=== PATIENT | female | born 1945 | race Caucasian/White ===

== ENCOUNTER 2017-03-01 11:45 | Inpatient (IN) | payer MEDICARE ==
[~2017-03-01] VITALS: Ht 160 cm; Wt 76.2 kg
[~2017-03-01 11:45] MED LIST: CITA40TA17 PO; EST1T PO; LOSA25TA96 PO; METO50TA16 PO
[2017-03-21] MEDS ORDERED: BUPR100T5 PO (14:29)
[2017-03-21] MEDS ORDERED: PRO AIR INHALER (14:29)
[2017-03-21] MEDS ORDERED: TRAM50TA2 PO (14:29)
[2017-03-21] MEDS ORDERED: ADV50250 IH (14:29)
[2017-03-21 14:41] LABS: BASOPHILS % (AUTO) 0.3 % (0-1); EOSINOPHILS # (AUTO) 0.3 X10'3 (0-0.9); EOSINOPHILS % (AUTO) 5.2 % (0-6); LYMPHOCYTES # (AUTO) 1.7 X10'3 (1.1-4.8); LYMPHOCYTES % (AUTO) 25.6 % (21-51); MEAN CORPUSCULAR HEMOGLOBIN 34.3 PG (27.0-31.0); MEAN CORPUSCULAR HGB CONC 34.6 % (33.0-36.5); MEAN CORPUSCULAR VOLUME 99.2 FL (78-98); MEAN PLATELET VOLUME 6.9 FL (7.4-10.4); MONOCYTES # (AUTO) 0.6 X10'3 (0-0.9); MONOCYTES % (AUTO) 8.4 % (2-12); NEUTROPHILS % (AUTO) 60.5 % (42-75); PRE OP HEMATOCRIT 38.3 % (35.0-45.0); PRE OP HEMOGLOBIN 13.3 g/dL (12.0-16.0); PRE OP PLATELET COUNT 304 X10'3 (140-440); RED BLOOD COUNT 3.86 X10'6 (4.20-5.60); RED CELL DISTRIBUTION WIDTH 14.5 % (11.5-14.5)
[2017-03-21 14:59] LABS: ALBUMIN 3.8 G/DL (3.4-5.0); ALBUMIN/GLOBULIN RATIO 1.2 (1.1-1.5); ALKALINE PHOSPHATASE 77 IU/L (46-116); BLOOD UREA NITROGEN 18 MG/DL (7-18); BUN/CREATININE RATIO 22.5 (6.6-38.0); CALCIUM 9.8 MG/DL (8.5-10.1); CHLORIDE 104 MMOL/L (99-107); PRE OP ALT 31 U/L (30-65); PRE OP ANION GAP 5 (8-16); PRE OP AST 20 U/L (10-37); PRE OP BILIRUB, TOTAL 0.3 MG/DL (0.0-1.0); PRE OP GLUCOSE 99 MG/DL (70-104); PRE OP POTASSIUM 4.7 MMOL/L (3.4-5.1); PRE OP SODIUM 143 MMOL/L (135-145); TOTAL CARBON DIOXIDE 34.5 MMOL/L (24-32); TOTAL PROTEIN 7.1 G/DL (6.4-8.2); eGFR 71 ML/MIN
[2017-03-29] VITALS (17 sets, daily range): BP systolic 113–169; BP diastolic 68–96
[2017-03-29] MEDS ORDERED: DOCUMENT DATE & TIME OF BETA-BLOCKER PO ONE (05:30)
[2017-03-29] MEDS ORDERED: famotidine 20mg tablet PO ONE (05:30)
[2017-03-29] MEDS ORDERED: vancomycin inj 1,500 MG in normal saline 300ml IV soln IV ONE (05:30)
[2017-03-29] MEDS ORDERED: cefazolin/dext.iso 2gm/50ml 50 ML IV ONE (05:30)
[2017-03-29] MEDS ORDERED: LIDOcaine 1% (10mg/ml) 2ml vial ONE (06:51)
[2017-03-29] MEDS: ringers solution, lacted 1,000 ML IV SCH ×2 (07:01→07:26)
[2017-03-29] MEDS ORDERED: albuterol 2.5 MG/3 ML nebule NEB ONE (07:20)
[2017-03-29] MEDS ORDERED: ROPIVAcaine 0.5% (5mg/ml) 30ml vial ONE ×3 (07:23→10:47)
[2017-03-29] MEDS ORDERED: ketorolac trometh. 30mg/ml inj. ONE (07:23)
[2017-03-29] MEDS ORDERED: vancomycin 1,000mg inj ONE (07:23)
[2017-03-29] MEDS ORDERED: cloNIDine hcl/PF 100mcg/ml inj ONE (08:01)
[2017-03-29] MEDS ORDERED: fentaNYL/PF 50MCG/1 ML 2ML syringe ONE (09:50)
[2017-03-29] MEDS ORDERED: tranexamic acid inj. 1,000 MG in normal saline 100ml IV soln 90 ML IV ONE ×4 (09:50)
[2017-03-29] MEDS ORDERED: sevoflurane 250ml liquid IH ONE (09:51)
[2017-03-29] MEDS ORDERED: midazolam 2 mg/2 ml injection ONE ×2 (09:51)
[2017-03-29] MEDS ORDERED: propofol inj 20 ML IV ONE (10:16)
[2017-03-29] MEDS ORDERED: ringers solution, lacted 1,000 ML IV SCH (10:59)
[2017-03-29] MEDS ORDERED: meperidine/PF 25mg/ml syringe IV PRN ×3 (11:00)
[2017-03-29] MEDS ORDERED: proCHLORperazine 10 MG/2 ml inj IV PRN (11:00)
[2017-03-29] MEDS ORDERED: morphine 5 MG/ML injection IV PRN ×2 (11:00)
[2017-03-29] MEDS ORDERED: ondansetron/PF 4mg/2ml inj IV PRN ×2 (11:00→12:20)
[2017-03-29] MEDS ORDERED: dexamethasone sod phosphate 4mg/ml inj. ONE (11:56)
[2017-03-29] MEDS ORDERED: ePHEDrine 50MG/ML INJ. ONE (11:56)
[2017-03-29] MEDS: potassium cl 20mEq in 1/2 NS 1,000 ML IV SCH ×2 (12:18→20:18)
[2017-03-29] MEDS ORDERED: diphenhydrAMINE 25mg capsule PO PRN ×2 (12:20)
[2017-03-29] MEDS ORDERED: oxyCODONE IR 5mg (immed. release) tablet PO PRN (12:20)
[2017-03-29] MEDS ORDERED: magnesium hydroxide 30ml (MOM) UD suspension PO PRN (12:20)
[2017-03-29] MEDS ORDERED: HYDROmorphone 1 mg/ml syringe IV PRN ×2 (12:20)
[2017-03-29] MEDS ORDERED: bisacodyl 10mg suppository rectal RC PRN (12:20)
[2017-03-29] MEDS ORDERED: acetaminophen 325mg tablet PO PRN (12:20)
[2017-03-29] MEDS: gabapentin 300mg capsule PO SCH ×2 (13:00→20:23)
[2017-03-29] MEDS ORDERED: tranexamic acid inj. 1,000 MG in normal saline 100ml IV soln 100 ML IV ONE (14:00)
[2017-03-29] MEDS: cefazolin 1gm/NS 100mL 100 ML IV SCH ×2 (16:36→23:58)
[2017-03-29] MEDS: ketorolac tromethamine 15mg/ml inj. IV SCH ×2 (16:37→20:00)
[2017-03-29] MEDS: traMADol 50MG tablet PO SCH ×2 (16:38→20:24)
[2017-03-29] MEDS: acetaminophen 325mg tablet PO SCH ×2 (16:38→22:38)
[2017-03-29] MEDS: oxyCODONE IR 5mg (immed. release) tablet PO PRN (19:55)
[2017-03-29] MEDS ORDERED: vancomycin/NS 1 GM ADD-VANTAGE 250 ML IV SCH (20:00)
[2017-03-29] MEDS ORDERED: non-formulary drug (Fluticasone/Salmeterol* (Advair 250-50 Diskus*) 1 PUFF) IH SCH (20:00)
[2017-03-29] MEDS ORDERED: sennosides 8.6mg tablet PO SCH (21:00)
[2017-03-30 02:00] VITALS: BP 131/75
[2017-03-30] MEDS: ketorolac tromethamine 15mg/ml inj. IV SCH ×2 (02:00→08:00)
[2017-03-30] MEDS: traMADol 50MG tablet PO SCH ×2 (02:48→07:56)
[2017-03-30] MEDS: potassium cl 20mEq in 1/2 NS 1,000 ML IV SCH (02:50)
[2017-03-30] MEDS: acetaminophen 325mg tablet PO SCH ×2 (04:27→07:55)
[2017-03-30] MEDS: oxyCODONE IR 5mg (immed. release) tablet PO PRN (04:27)
[2017-03-30 06:00] VITALS: BP 144/77
[2017-03-30 06:34] LABS: BASOPHILS % (AUTO) 0.2 % (0-1); EOSINOPHILS % (AUTO) 0.6 % (0-6); HEMATOCRIT 30.3 % (35.0-45.0); HEMOGLOBIN 10.3 g/dl (12.0-16.0); LYMPHOCYTES # (AUTO) 0.6 X10'3 (1.1-4.8); LYMPHOCYTES % (AUTO) 8.1 % (21-51); MEAN CORPUSCULAR HEMOGLOBIN 34.2 PG (27.0-31.0); MEAN CORPUSCULAR HGB CONC 34.1 % (33.0-36.5); MEAN CORPUSCULAR VOLUME 100.2 FL (78-98); MEAN PLATELET VOLUME 7.4 FL (7.4-10.4); MONOCYTES # (AUTO) 0.5 X10'3 (0-0.9); MONOCYTES % (AUTO) 6.2 % (2-12); NEUTROPHILS # (AUTO) 6.6 X10'3 (1.8-7.7); NEUTROPHILS % (AUTO) 84.9 % (42-75); PLATELET COUNT 218 X10'3 (140-440); RED BLOOD COUNT 3.02 X10'6 (4.20-5.60); RED CELL DISTRIBUTION WIDTH 14.3 % (11.5-14.5); WHITE BLOOD COUNT 7.8 X10'3 (4.5-11.0)
[2017-03-30 07:07] LABS: ANION GAP 10 (8-16); CHLORIDE 107 MMOL/L (99-107); POTASSIUM 4.2 MMOL/L (3.5-5.1); SODIUM 141 MMOL/L (135-145); TOTAL CARBON DIOXIDE 24.1 MMOL/L (24-32)
[2017-03-30] MEDS: gabapentin 300mg capsule PO SCH (07:54)
[2017-03-30] MEDS ORDERED: buPROPion SR 100mg tab PO SCH (08:00)
[2017-03-30] MEDS ORDERED: losartan 25mg tablet PO SCH (08:00)
[2017-03-30] MEDS ORDERED: CITALOPRAM HYDROBROMIDE 30 MG PO SCH (08:00)
[2017-03-30] MEDS ORDERED: CITALOpram 10mg tablet PO SCH (08:00)
[2017-03-30] MEDS ORDERED: metoprolol tartrate 50mg tablet PO SCH (08:00)
[2017-03-30] MEDS ORDERED: aspirin 325mg tablet PO SCH (08:30)
[2017-03-30 10:00] VITALS: BP 123/68
[2017-03-30] MEDS ORDERED: ASPI-1 PO (11:23)
[2017-03-31] MEDS ORDERED: celeCOXIB 100mg capsule PO SCH (08:00)
[2017-03-31] MEDS ORDERED: acetaminophen 325mg tablet PO PRN (12:20)
== END 2017-03-30 12:25 | disposition home health service (06) | DRG 483 ==
LOC: PAS IN 03-29 06:06 → EDSTATUS 03-29 07:30 → ORTHO 4S 03-29 13:04
PROVIDERS: ADMIT Orthopaedic Surgery; ATTEND Orthopaedic Surgery
PROC: 0LS40ZZ Reposition Left Upper Arm Tendon, Open Approach (ICD-10-PCS; 2017-03-29)
PROC: 3E0T3BZ Introduction of Anesthetic Agent into Peripheral Nerves and Plexi, Percutaneous Approach (ICD-10-PCS; 2017-03-29)
PROC: 0RRK00Z Replacement of Left Shoulder Joint with Reverse Ball and Socket Synthetic Substitute, Open Approach (ICD-10-PCS; principal; 2017-03-29 09:51)
DX: M19.012 Primary osteoarthritis, left shoulder (principal); D62 Acute posthemorrhagic anemia; J44.9 Chronic obstructive pulmonary disease, unspecified; I10 Essential (primary) hypertension; K21.9 Gastro-esophageal reflux disease without esophagitis; M65.9 Synovitis and tenosynovitis, unspecified; Z79.82 Long term (current) use of aspirin; Z79.899 Other long term (current) drug therapy; F32.9 Major depressive disorder, single episode, unspecified; Z88.3 Allergy status to other anti-infective agents; Z88.0 Allergy status to penicillin
CPT/HCPCS: 36415; 71046; 80051; 80053; 85025; 87070; 93005; 94640; 94760; 97110; 97116; 97162; A4565; A7000; J0690; J0735; J1100; J1170; J1885; J2250; J2704; J2795; J3010; J3370; J3490; J7030; J7120; Q0163

== ENCOUNTER 2018-01-05 07:50 | Emergency (ER) | payer MEDICARE ==
[~2018-01-05] VITALS: Ht 160 cm; Wt 69.3 kg
[~2018-01-05 07:50] MED LIST changes: +ADV50250 IH; +ASPI-1 PO; +BUPR100T5 PO; +PRO AIR INHALER
[2018-01-05 09:13] LABS: BASOPHILS % (AUTO) 0.5 % (0-1); EOSINOPHILS # (AUTO) 0.1 X10'3 (0-0.9); EOSINOPHILS % (AUTO) 0.7 % (0-6); HEMATOCRIT 39.8 % (35.0-45.0); HEMOGLOBIN 13.2 g/dl (12.0-16.0); LYMPHOCYTES # (AUTO) 1.3 X10'3 (1.1-4.8); LYMPHOCYTES % (AUTO) 16.7 % (21-51); MEAN CORPUSCULAR HEMOGLOBIN 31.7 PG (27.0-31.0); MEAN CORPUSCULAR HGB CONC 33.3 % (33.0-36.5); MEAN CORPUSCULAR VOLUME 95.3 FL (78-98); MEAN PLATELET VOLUME 7.2 FL (7.4-10.4); MONOCYTES # (AUTO) 0.4 X10'3 (0-0.9); MONOCYTES % (AUTO) 5.6 % (2-12); NEUTROPHILS % (AUTO) 76.5 % (42-75); PLATELET COUNT 292 X10'3 (140-440); RED BLOOD COUNT 4.17 X10'6 (4.20-5.60); RED CELL DISTRIBUTION WIDTH 14.7 % (11.5-14.5); WHITE BLOOD COUNT 7.8 X10'3 (4.5-11.0)
[2018-01-05 09:30] LABS: ALANINE AMINOTRANSFERASE 25 U/L (12-78); ALBUMIN 3.6 G/DL (3.4-5.0); ALKALINE PHOSPHATASE 85 IU/L (46-116); ANION GAP 7 (8-16); ASPARTATE AMINO TRANSFERASE 17 U/L (10-37); BILIRUBIN,TOTAL 0.4 MG/DL (0.1-1.0); BLOOD UREA NITROGEN 16 MG/DL (7-18); CALCIUM 8.9 MG/DL (8.5-10.1); CHLORIDE 104 MMOL/L (99-107); CREATININE 0.94 MG/DL (0.40-0.90); GLUCOSE 120 MG/DL (70-104); POTASSIUM 4.1 MMOL/L (3.5-5.1); SODIUM 140 MMOL/L (135-145); TOTAL CARBON DIOXIDE 28.7 MMOL/L (24-32); TOTAL PROTEIN 7.1 G/DL (6.4-8.2); eGFR 59 ML/MIN
[2018-01-05 09:41] LABS: ETHANOL < 0.010 GM/DL (0.0-0.010)
[2018-01-05 11:52] LABS: CLARITY,URINE CLEAR (Clear); COLOR,URINE YELLOW (Yellow); GLUCOSE, URINE NEGATIVE (Neg); KETONES,URINE NEGATIVE (Neg); LEUKOCYTE ESTERASE ,URINE NEGATIVE (Neg); NITRITES, URINE NEGATIVE (Neg); OCCULT BLOOD,URINE MODERATE (Neg); PROTEIN,URINE 100 mg/dl (Neg); UROBILINOGEN,URINE 0.2 E.U/dL (0.2-1.0)
[2018-01-05 11:53] LABS: UA COLLECTION TYPE CLN CATCH MIDSTREAM
[2018-01-05 12:03] LABS: BACTERIA,URINE 2+ /HPF (Neg); SQUAMOUS EPITHELIAL CELL,UR MODERATE /LPF (FEW); WBC,URINE 0-4 /HPF (0-4)
[2018-01-05 12:05] LABS: URINE AMPHETAMINE SCREEN NEGATIVE (Neg); URINE BARBITUATE SCREEN NEGATIVE (Neg); URINE BENZODIAZEPINES SCREEN NEGATIVE (Neg); URINE CANNABINOID SCREEN NEGATIVE (Neg); URINE COCAINE SCREEN NEGATIVE (Neg); URINE METHADONE SCREEN NEGATIVE (Neg); URINE OPIATE SCREEN NEGATIVE (Neg); URINE PHENCYCLIDINE SCREEN NEGATIVE (Neg)
[2018-01-05] MEDS ORDERED: hyDROXYzine 50 mg/ml injection ***IM only IM ONE (13:55)
[2018-01-05] MEDS ORDERED: HYDR-4070 PO (14:49)
[2018-01-05] MEDS ORDERED: LEVO50TA PO (14:49)
[2018-01-05] MEDS ORDERED: CITA-311 PO (14:49)
[2018-01-05] MEDS ORDERED: BUDE10.2 INH (14:49)
[2018-01-05] MEDS ORDERED: BUPR150T6 PO (14:49)
[2018-01-05] MEDS ORDERED: HYDR-3686 PO (15:58)
[2018-01-05] MEDS ORDERED: TRAM50TA2 PO (15:58)
[2018-01-05] MEDS ORDERED: ALBU18HF2 INH (15:58)
[2018-01-05] MEDS ORDERED: SIMV40TA PO (16:04)
[2018-01-05] MEDS ORDERED: ALB0.5UD IH (16:04)
[2018-01-05] MEDS ORDERED: METO-411 PO (16:04)
[2018-01-05] MEDS ORDERED: LORazepam 1 MG tablet PO ONE (17:20)
[2018-01-05] MEDS: CITALOpram 10mg tablet PO SCH (17:58)
[2018-01-05] MEDS ORDERED: albuterol 2.5 MG/3 ML nebule NEB PRN (18:10)
[2018-01-05] MEDS: budesonide 0.5mg/2ml UD nebule IH SCH (20:08)
[2018-01-05] MEDS: albuterol 2.5 MG/3 ML nebule NEB SCH (20:08)
[2018-01-05] MEDS ORDERED: acetaminophen 325mg tablet PO PRN (20:10)
[2018-01-05] MEDS: hydrOXYzine 25 MG tablet PO PRN (20:23)
[2018-01-05] MEDS ORDERED: atorvastatin 20mg tablet PO SCH (21:00)
[2018-01-05] MEDS ORDERED: buproprion 150mg XL (24-hour) tablet PO SCH (21:00)
[2018-01-06 05:30] VITALS: BP 188/90
[2018-01-06] MEDS: hydrOXYzine 25 MG tablet PO PRN ×2 (05:55→10:34)
[2018-01-06] MEDS: albuterol 2.5 MG/3 ML nebule NEB SCH ×2 (07:00→11:00)
[2018-01-06] MEDS ORDERED: levoTHYROXINE 25mcg tablet PO SCH (07:00)
[2018-01-06] MEDS: CITALOpram 10mg tablet PO SCH (07:18)
[2018-01-06] MEDS: buPROPion SR 100mg tab PO SCH ×2 (07:18→12:30)
[2018-01-06] MEDS ORDERED: metoprolol succinate 25mg (24-HOUR) SR. Tablet PO SCH (08:00)
[2018-01-06] MEDS ORDERED: losartan 25mg tablet PO SCH (08:00)
[2018-01-06] MEDS: budesonide 0.5mg/2ml UD nebule IH SCH (08:00)
[2018-01-06] MEDS ORDERED: acetaminophen 325mg tablet PO ONE (11:25)
[2018-01-06] MEDS ORDERED: LORazepam 1 MG tablet PO PRN (11:40)
== END 2018-01-06 14:39 ==
LOC: ER 07:50
DX: F32.9 Major depressive disorder, single episode, unspecified (principal); G47.00 Insomnia, unspecified; J44.9 Chronic obstructive pulmonary disease, unspecified; Z88.0 Allergy status to penicillin; Z88.8 Allergy status to other drugs, medicaments and biological substances
CPT/HCPCS: 36415; 80053; 80305; 80320; 81001; 84443; 85025; 94640; 94760; 96372; 99285; J3410; Q0177; J7626

== ENCOUNTER 2018-01-06 12:31 | Inpatient (IN) | payer MEDICARE ==
[~2018-01-06] VITALS: Ht 156.8 cm; Wt 70.4 kg
[~2018-01-06 12:31] MED LIST changes: -ADV50250 IH; +ALBU18HF2 INH; -ASPI-1 PO; +BUDE10.2 INH; -BUPR100T5 PO; +BUPR150T6 PO; +CITA-311 PO; -CITA40TA17 PO; +HYDR-3686 PO; +LEVO50TA PO; +METO-411 PO; -METO50TA16 PO; -PRO AIR INHALER; +SIMV40TA PO; +TRAM50TA2 PO
[2018-01-06 16:26] VITALS: BP 106/79
[2018-01-06] MEDS ORDERED: magnesium hydroxide 30ml (MOM) UD suspension PO PRN (17:40)
[2018-01-06] MEDS ORDERED: acetaminophen 325mg tablet PO PRN (17:40)
[2018-01-06] MEDS ORDERED: tuberculin, purif. prot. deriv. 5 units/0.1ml ID ONE (17:40)
[2018-01-06] MEDS: albuterol 2.5 MG/3 ML nebule NEB SCH (19:44)
[2018-01-06] MEDS: budesonide 0.5mg/2ml UD nebule IH SCH (19:44)
[2018-01-06 19:57] VITALS: BP 178/98
[2018-01-06] MEDS: aripiprazole 5mg tablet PO SCH (21:24)
[2018-01-06] MEDS: traMADol 50MG tablet PO PRN (21:26)
[2018-01-06] MEDS: temazepam 15mg capsule PO PRN (21:27)
[2018-01-06] MEDS: hydrOXYzine 25 MG tablet PO PRN (21:27)
[2018-01-07] MEDS: acetaminophen 325mg tablet PO PRN (05:07)
[2018-01-07] MEDS: albuterol 2.5 MG/3 ML nebule NEB SCH ×3 (07:00→19:21)
[2018-01-07] MEDS: levoTHYROXINE 25mcg tablet PO SCH (07:48)
[2018-01-07] MEDS: CITALOpram 10mg tablet PO SCH (07:48)
[2018-01-07] MEDS: duloxetine 30mg CAPSULE.DR PO SCH (07:48)
[2018-01-07] MEDS: metoprolol succinate 25mg (24-HOUR) SR. Tablet PO SCH (07:49)
[2018-01-07] MEDS: buPROPion SR 100mg tab PO SCH ×2 (07:50→12:37)
[2018-01-07] MEDS: atorvastatin 20mg tablet PO SCH (07:50)
[2018-01-07] MEDS: losartan 50mg tablet PO SCH (07:51)
[2018-01-07 08:00] VITALS: BP 153/83
[2018-01-07] MEDS: budesonide 0.5mg/2ml UD nebule IH SCH ×3 (08:00→20:00)
[2018-01-07 09:26] LABS: CHOL/HDL RATIO 2.3 (0.00-4.99); CHOLESTEROL 177 MG/DL (0-200); HDL CHOLESTEROL 77 MG/DL (35-60); LDL CHOLESTEROL 74 MG/DL (50-100); TRIGLYCERIDES 119 MG/DL (20-135)
[2018-01-07] MEDS: hydrOXYzine 25 MG tablet PO PRN (12:37)
[2018-01-07] MEDS ORDERED: LORazepam 1 MG tablet PO ONE (12:55)
[2018-01-07] MEDS ORDERED: risperiDONE 0.5mg tablet PO ONE (12:55)
[2018-01-07 19:00] VITALS: BP 120/73
[2018-01-07] MEDS: aripiprazole 5mg tablet PO SCH (21:14)
[2018-01-07] MEDS: temazepam 15mg capsule PO PRN (21:15)
[2018-01-07] MEDS: traMADol 50MG tablet PO PRN (21:15)
[2018-01-07] MEDS: LORazepam 0.5 MG tablet PO PRN (21:22)
[2018-01-08] MEDS: metoprolol succinate 25mg (24-HOUR) SR. Tablet PO SCH (07:23)
[2018-01-08] MEDS: CITALOpram 10mg tablet PO SCH (07:24)
[2018-01-08] MEDS: buPROPion SR 100mg tab PO SCH ×2 (07:24→12:34)
[2018-01-08] MEDS: levoTHYROXINE 25mcg tablet PO SCH (07:25)
[2018-01-08] MEDS: atorvastatin 20mg tablet PO SCH (07:25)
[2018-01-08] MEDS: duloxetine 30mg CAPSULE.DR PO SCH (07:25)
[2018-01-08] MEDS: losartan 50mg tablet PO SCH (07:26)
[2018-01-08 07:28] VITALS: BP 146/78
[2018-01-08] MEDS: budesonide 0.5mg/2ml UD nebule IH SCH ×2 (07:52→21:19)
[2018-01-08] MEDS: albuterol 2.5 MG/3 ML nebule NEB SCH ×3 (07:52→21:16)
[2018-01-08] MEDS: LORazepam 1 MG tablet PO PRN ×2 (12:21→20:58)
[2018-01-08] MEDS: acetaminophen 325mg tablet PO PRN (12:25)
[2018-01-08] MEDS: risperiDONE 0.5mg tablet PO PRN ×2 (12:34→20:58)
[2018-01-08 20:00] VITALS: BP 125/77
[2018-01-08] MEDS: aripiprazole 5mg tablet PO SCH (20:56)
[2018-01-08] MEDS: traMADol 50MG tablet PO PRN (20:57)
[2018-01-08] MEDS: temazepam 15mg capsule PO PRN (20:58)
[2018-01-09] MEDS: levoTHYROXINE 25mcg tablet PO SCH (07:32)
[2018-01-09] MEDS: albuterol 2.5 MG/3 ML nebule NEB SCH ×4 (07:51→19:14)
[2018-01-09] MEDS: budesonide 0.5mg/2ml UD nebule IH SCH ×2 (07:54→19:14)
[2018-01-09 08:00] VITALS: BP 145/91
[2018-01-09] MEDS: metoprolol succinate 25mg (24-HOUR) SR. Tablet PO SCH (08:27)
[2018-01-09] MEDS: CITALOpram 10mg tablet PO SCH (08:28)
[2018-01-09] MEDS: atorvastatin 20mg tablet PO SCH (08:28)
[2018-01-09] MEDS: duloxetine 30mg CAPSULE.DR PO SCH (08:28)
[2018-01-09] MEDS: losartan 50mg tablet PO SCH (08:28)
[2018-01-09] MEDS: buPROPion SR 100mg tab PO SCH ×2 (08:28→12:31)
[2018-01-09] MEDS: LORazepam 1 MG tablet PO PRN (12:31)
[2018-01-09] MEDS: risperiDONE 0.5mg tablet PO PRN ×2 (13:04→19:38)
[2018-01-09] MEDS: LORazepam 0.5 MG tablet PO PRN (19:37)
[2018-01-09] MEDS: traMADol 50MG tablet PO PRN (19:39)
[2018-01-09 20:00] VITALS: BP 152/82
[2018-01-09] MEDS: aripiprazole 5mg tablet PO SCH (20:14)
[2018-01-10] MEDS: atorvastatin 20mg tablet PO SCH (07:43)
[2018-01-10] MEDS: buPROPion SR 100mg tab PO SCH ×2 (07:43→13:18)
[2018-01-10] MEDS: losartan 50mg tablet PO SCH (07:43)
[2018-01-10] MEDS: levoTHYROXINE 25mcg tablet PO SCH (07:43)
[2018-01-10] MEDS: CITALOpram 10mg tablet PO SCH (07:43)
[2018-01-10] MEDS: duloxetine 30mg CAPSULE.DR PO SCH (07:43)
[2018-01-10] MEDS: albuterol 2.5 MG/3 ML nebule NEB SCH ×4 (07:52→20:31)
[2018-01-10] MEDS: budesonide 0.5mg/2ml UD nebule IH SCH (07:52)
[2018-01-10 08:00] VITALS: BP 152/73
[2018-01-10] MEDS: hydrOXYzine 25 MG tablet PO PRN (08:17)
[2018-01-10] MEDS: metoprolol succinate 25mg (24-HOUR) SR. Tablet PO SCH (08:17)
[2018-01-10] MEDS: traMADol 50MG tablet PO PRN ×2 (13:17→20:49)
[2018-01-10] MEDS: LORazepam 0.5 MG tablet PO PRN (15:29)
[2018-01-10] MEDS: mag hydrox/Alum hydrox/simeth 30ml oral suspension PO PRN (15:29)
[2018-01-10 19:00] VITALS: BP 123/65
[2018-01-10] MEDS: temazepam 15mg capsule PO PRN (20:49)
[2018-01-10] MEDS: aripiprazole 5mg tablet PO SCH (20:49)
[2018-01-11] MEDS: budesonide 0.5mg/2ml UD nebule IH SCH ×2 (07:15→20:35)
[2018-01-11] MEDS: albuterol 2.5 MG/3 ML nebule NEB SCH ×4 (07:15→20:35)
[2018-01-11] MEDS: duloxetine 30mg CAPSULE.DR PO SCH (07:50)
[2018-01-11] MEDS: levoTHYROXINE 25mcg tablet PO SCH (07:50)
[2018-01-11] MEDS: metoprolol succinate 25mg (24-HOUR) SR. Tablet PO SCH (07:51)
[2018-01-11] MEDS: buPROPion SR 100mg tab PO SCH ×2 (07:51→12:11)
[2018-01-11] MEDS: losartan 50mg tablet PO SCH (07:51)
[2018-01-11] MEDS: CITALOpram 10mg tablet PO SCH (07:51)
[2018-01-11] MEDS: atorvastatin 20mg tablet PO SCH (07:51)
[2018-01-11] MEDS: traMADol 50MG tablet PO PRN ×2 (08:05→20:31)
[2018-01-11 08:52] VITALS: BP 160/98
[2018-01-11] MEDS: LORazepam 0.5 MG tablet PO PRN (17:05)
[2018-01-11] MEDS: risperiDONE 0.5mg tablet PO PRN (17:05)
[2018-01-11 20:00] VITALS: BP 113/66
[2018-01-11] MEDS: temazepam 15mg capsule PO PRN (20:21)
[2018-01-11] MEDS: aripiprazole 5mg tablet PO SCH (20:22)
[2018-01-12] MEDS: albuterol 2.5 MG/3 ML nebule NEB PRN (03:34)
[2018-01-12] MEDS: LORazepam 0.5 MG tablet PO PRN ×2 (03:50→14:27)
[2018-01-12] MEDS: albuterol 2.5 MG/3 ML nebule NEB SCH ×4 (07:33→21:07)
[2018-01-12] MEDS: budesonide 0.5mg/2ml UD nebule IH SCH ×2 (07:33→21:07)
[2018-01-12 08:00] VITALS: BP 152/96
[2018-01-12] MEDS: atorvastatin 20mg tablet PO SCH (08:10)
[2018-01-12] MEDS: levoTHYROXINE 25mcg tablet PO SCH (08:11)
[2018-01-12] MEDS: buPROPion SR 100mg tab PO SCH ×2 (08:11→12:39)
[2018-01-12] MEDS: losartan 50mg tablet PO SCH (08:11)
[2018-01-12] MEDS: duloxetine 30mg CAPSULE.DR PO SCH (08:11)
[2018-01-12] MEDS: metoprolol succinate 25mg (24-HOUR) SR. Tablet PO SCH (08:12)
[2018-01-12] MEDS: traMADol 50MG tablet PO PRN (10:08)
[2018-01-12] MEDS: risperiDONE 0.5mg tablet PO PRN (14:27)
[2018-01-12 19:55] VITALS: BP 118/43
[2018-01-12] MEDS: aripiprazole 5mg tablet PO SCH (22:01)
[2018-01-12] MEDS: temazepam 15mg capsule PO PRN ×2 (22:01→22:02)
[2018-01-13] MEDS: albuterol 2.5 MG/3 ML nebule NEB PRN (04:47)
[2018-01-13] MEDS: albuterol 2.5 MG/3 ML nebule NEB SCH ×2 (06:55→11:06)
[2018-01-13] MEDS: budesonide 0.5mg/2ml UD nebule IH SCH ×2 (06:55→19:05)
[2018-01-13] MEDS: buPROPion SR 100mg tab PO SCH ×2 (07:34→12:57)
[2018-01-13] MEDS: levoTHYROXINE 25mcg tablet PO SCH (07:34)
[2018-01-13] MEDS: losartan 50mg tablet PO SCH (07:58)
[2018-01-13] MEDS: atorvastatin 20mg tablet PO SCH (07:58)
[2018-01-13] MEDS: metoprolol succinate 25mg (24-HOUR) SR. Tablet PO SCH (07:58)
[2018-01-13] MEDS: duloxetine 30mg CAPSULE.DR PO SCH (07:58)
[2018-01-13 08:00] VITALS: BP 131/63
[2018-01-13 12:31] LABS: BASOPHILS % (AUTO) 0.3 % (0-1); EOSINOPHILS # (AUTO) 0.3 X10'3 (0-0.9); EOSINOPHILS % (AUTO) 5.4 % (0-6); HEMATOCRIT 35.7 % (35.0-45.0); HEMOGLOBIN 11.7 g/dl (12.0-16.0); LYMPHOCYTES # (AUTO) 1.2 X10'3 (1.1-4.8); LYMPHOCYTES % (AUTO) 20.6 % (21-51); MEAN CORPUSCULAR HEMOGLOBIN 31.6 PG (27.0-31.0); MEAN CORPUSCULAR HGB CONC 32.9 % (33.0-36.5); MEAN CORPUSCULAR VOLUME 96.2 FL (78-98); MEAN PLATELET VOLUME 7.3 FL (7.4-10.4); MONOCYTES # (AUTO) 0.5 X10'3 (0-0.9); MONOCYTES % (AUTO) 7.9 % (2-12); NEUTROPHILS # (AUTO) 3.8 X10'3 (1.8-7.7); NEUTROPHILS % (AUTO) 65.8 % (42-75); PLATELET COUNT 269 X10'3 (140-440); RED BLOOD COUNT 3.71 X10'6 (4.20-5.60); RED CELL DISTRIBUTION WIDTH 15.1 % (11.5-14.5); WHITE BLOOD COUNT 5.8 X10'3 (4.5-11.0)
[2018-01-13 12:36] LABS: ALANINE AMINOTRANSFERASE 25 U/L (12-78); ALBUMIN 3.4 G/DL (3.4-5.0); ALKALINE PHOSPHATASE 88 IU/L (46-116); ANION GAP 6 (8-16); ASPARTATE AMINO TRANSFERASE 22 U/L (10-37); BILIRUBIN,TOTAL 0.3 MG/DL (0.1-1.0); BLOOD UREA NITROGEN 15 MG/DL (7-18); BUN/CREATININE RATIO 17.2 (6.6-38.0); CALCIUM 9.1 MG/DL (8.5-10.1); CHLORIDE 102 MMOL/L (99-107); CREATININE 0.87 MG/DL (0.40-0.90); GLUCOSE 100 MG/DL (70-104); POTASSIUM 4.7 MMOL/L (3.5-5.1); SODIUM 139 MMOL/L (135-145); TOTAL CARBON DIOXIDE 31.4 MMOL/L (24-32); TOTAL PROTEIN 6.8 G/DL (6.4-8.2); eGFR 64 ML/MIN
[2018-01-13] MEDS: LORazepam 0.5 MG tablet PO PRN (13:03)
[2018-01-13] MEDS: risperiDONE 0.5mg tablet PO PRN (13:03)
[2018-01-13] MEDS: traMADol 50MG tablet PO PRN (13:13)
[2018-01-13] MEDS ORDERED: LORazepam 0.5 MG tablet PO ONE (17:05)
[2018-01-13] MEDS ORDERED: risperiDONE 0.5mg tablet PO ONE (17:05)
[2018-01-13 19:50] VITALS: BP 134/83
[2018-01-13] MEDS: aripiprazole 5mg tablet PO SCH (20:51)
[2018-01-13] MEDS: temazepam 15mg capsule PO PRN (20:52)
[2018-01-14] MEDS: budesonide 0.5mg/2ml UD nebule IH SCH (07:23)
[2018-01-14] MEDS: albuterol 2.5 MG/3 ML nebule NEB SCH ×2 (07:23→12:06)
[2018-01-14] MEDS: duloxetine 30mg CAPSULE.DR PO SCH (07:40)
[2018-01-14] MEDS: losartan 50mg tablet PO SCH (07:41)
[2018-01-14] MEDS: levoTHYROXINE 25mcg tablet PO SCH (07:41)
[2018-01-14] MEDS: atorvastatin 20mg tablet PO SCH (07:41)
[2018-01-14] MEDS: metoprolol succinate 25mg (24-HOUR) SR. Tablet PO SCH (07:41)
[2018-01-14] MEDS: buPROPion SR 100mg tab PO SCH (07:42)
[2018-01-14 08:00] VITALS: BP 129/87
[2018-01-14] MEDS: traMADol 50MG tablet PO PRN (09:36)
[2018-01-14] MEDS: ALBUTEROL IH (13:30)
[2018-01-14] MEDS: LORazepam 0.5 MG tablet PO PRN ×2 (14:59→20:42)
[2018-01-14] MEDS: risperiDONE 0.5mg tablet PO PRN ×2 (15:00→20:46)
[2018-01-14 19:00] VITALS: BP 110/65
[2018-01-14] MEDS: SYMBICORT IH SCH (19:34)
[2018-01-14] MEDS: temazepam 15mg capsule PO PRN (20:41)
[2018-01-14] MEDS: aripiprazole 5mg tablet PO SCH (20:45)
[2018-01-14] MEDS: hydrOXYzine 25 MG tablet PO PRN (20:47)
[2018-01-15] MEDS: duloxetine 30mg CAPSULE.DR PO SCH (07:51)
[2018-01-15] MEDS: atorvastatin 20mg tablet PO SCH (07:53)
[2018-01-15] MEDS: metoprolol succinate 25mg (24-HOUR) SR. Tablet PO SCH (07:53)
[2018-01-15] MEDS: levoTHYROXINE 25mcg tablet PO SCH (07:53)
[2018-01-15] MEDS: buPROPion SR 100mg tab PO SCH (07:53)
[2018-01-15] MEDS: losartan 50mg tablet PO SCH (07:54)
[2018-01-15 08:00] VITALS: BP 138/68
[2018-01-15] MEDS: SYMBICORT IH SCH ×2 (08:51→20:04)
[2018-01-15] MEDS: LORazepam 0.5 MG tablet PO PRN ×2 (10:52→19:15)
[2018-01-15] MEDS: risperiDONE 0.5mg tablet PO PRN (19:15)
[2018-01-15 20:00] VITALS: BP 113/66
[2018-01-15] MEDS: temazepam 15mg capsule PO PRN (20:11)
[2018-01-15] MEDS: aripiprazole 5mg tablet PO SCH (20:11)
[2018-01-15] MEDS: traMADol 50MG tablet PO PRN (20:11)
[2018-01-16] MEDS: ALBUTEROL IH ×2 (06:03→19:33)
[2018-01-16] MEDS: levoTHYROXINE 25mcg tablet PO SCH (07:41)
[2018-01-16 08:00] VITALS: BP 164/83
[2018-01-16] MEDS: SYMBICORT IH SCH ×3 (08:24→19:33)
[2018-01-16] MEDS: losartan 50mg tablet PO SCH (08:24)
[2018-01-16] MEDS: duloxetine 30mg CAPSULE.DR PO SCH (08:24)
[2018-01-16] MEDS: atorvastatin 20mg tablet PO SCH (08:24)
[2018-01-16] MEDS: metoprolol succinate 25mg (24-HOUR) SR. Tablet PO SCH (08:24)
[2018-01-16] MEDS: risperiDONE 0.5mg tablet PO PRN ×2 (08:25→20:58)
[2018-01-16] MEDS: LORazepam 0.5 MG tablet PO PRN ×2 (08:33→20:58)
[2018-01-16] MEDS: traMADol 50MG tablet PO PRN ×2 (08:34→20:56)
[2018-01-16 19:00] VITALS: BP 147/85
[2018-01-16] MEDS: aripiprazole 5mg tablet PO SCH (20:55)
[2018-01-16] MEDS: temazepam 15mg capsule PO PRN (20:57)
[2018-01-17] MEDS: LORazepam 0.5 MG tablet PO PRN ×3 (07:04→19:28)
[2018-01-17] MEDS: levoTHYROXINE 25mcg tablet PO SCH (07:04)
[2018-01-17 08:00] VITALS: BP 151/89
[2018-01-17] MEDS: losartan 50mg tablet PO SCH (08:23)
[2018-01-17] MEDS: duloxetine 30mg CAPSULE.DR PO SCH (08:23)
[2018-01-17] MEDS: atorvastatin 20mg tablet PO SCH (08:23)
[2018-01-17] MEDS: metoprolol succinate 25mg (24-HOUR) SR. Tablet PO SCH (08:23)
[2018-01-17] MEDS: traMADol 50MG tablet PO PRN (15:42)
[2018-01-17] MEDS: risperiDONE 0.5mg tablet PO PRN (19:15)
[2018-01-17] MEDS: SYMBICORT IH SCH (19:27)
[2018-01-17 20:00] VITALS: BP 131/83
[2018-01-17] MEDS: aripiprazole 5mg tablet PO SCH (20:30)
[2018-01-17] MEDS: temazepam 15mg capsule PO PRN (20:31)
[2018-01-18] MEDS: levoTHYROXINE 25mcg tablet PO SCH (07:20)
[2018-01-18 08:00] VITALS: BP 137/83
[2018-01-18] MEDS: metoprolol succinate 25mg (24-HOUR) SR. Tablet PO SCH (08:33)
[2018-01-18] MEDS: duloxetine 30mg CAPSULE.DR PO SCH (08:33)
[2018-01-18] MEDS: atorvastatin 20mg tablet PO SCH (08:33)
[2018-01-18] MEDS: losartan 50mg tablet PO SCH (08:39)
[2018-01-18] MEDS: SYMBICORT IH SCH ×2 (08:41→20:14)
[2018-01-18] MEDS: LORazepam 0.5 MG tablet PO SCH ×2 (13:22→17:59)
[2018-01-18] MEDS: risperiDONE 2mg tablet PO SCH ×2 (13:22→17:59)
[2018-01-18] MEDS: traMADol 50MG tablet PO PRN (15:08)
[2018-01-18] MEDS: LORazepam 0.5 MG tablet PO PRN (19:01)
[2018-01-18 20:00] VITALS: BP 146/76
[2018-01-18] MEDS: aripiprazole 5mg tablet PO SCH (20:17)
[2018-01-18] MEDS: temazepam 15mg capsule PO PRN (20:26)
[2018-01-19] MEDS: SYMBICORT IH SCH ×2 (07:07→20:43)
[2018-01-19] MEDS: atorvastatin 20mg tablet PO SCH (07:55)
[2018-01-19] MEDS: metoprolol succinate 25mg (24-HOUR) SR. Tablet PO SCH (07:56)
[2018-01-19] MEDS: duloxetine 30mg CAPSULE.DR PO SCH (07:57)
[2018-01-19] MEDS: losartan 50mg tablet PO SCH (07:57)
[2018-01-19] MEDS: levoTHYROXINE 25mcg tablet PO SCH (07:58)
[2018-01-19 08:00] VITALS: BP 113/89
[2018-01-19] MEDS: LORazepam 0.5 MG tablet PO SCH ×2 (11:53→20:29)
[2018-01-19] MEDS: risperiDONE 0.5mg tablet PO PRN (11:53)
[2018-01-19] MEDS: risperiDONE 2mg tablet PO SCH ×2 (12:08→20:30)
[2018-01-19] MEDS: traMADol 50MG tablet PO PRN (14:04)
[2018-01-19 20:00] VITALS: BP 100/52
[2018-01-19] MEDS: temazepam 15mg capsule PO PRN (20:30)
[2018-01-19] MEDS: aripiprazole 5mg tablet PO SCH (20:30)
[2018-01-20 08:00] VITALS: BP 132/78
[2018-01-20] MEDS: SYMBICORT IH SCH ×3 (08:00→20:23)
[2018-01-20] MEDS: levoTHYROXINE 25mcg tablet PO SCH (08:16)
[2018-01-20] MEDS: losartan 50mg tablet PO SCH (08:16)
[2018-01-20] MEDS: risperiDONE 2mg tablet PO SCH ×2 (08:16→20:05)
[2018-01-20] MEDS: duloxetine 30mg CAPSULE.DR PO SCH (08:16)
[2018-01-20] MEDS: LORazepam 0.5 MG tablet PO SCH ×2 (08:16→20:05)
[2018-01-20] MEDS: metoprolol succinate 25mg (24-HOUR) SR. Tablet PO SCH (08:16)
[2018-01-20] MEDS: atorvastatin 20mg tablet PO SCH (08:16)
[2018-01-20] MEDS: traMADol 50MG tablet PO PRN ×2 (12:43→20:05)
[2018-01-20] MEDS: mag hydrox/Alum hydrox/simeth 30ml oral suspension PO PRN (16:47)
[2018-01-20 19:50] VITALS: BP 119/75
[2018-01-20] MEDS: aripiprazole 5mg tablet PO SCH (20:05)
[2018-01-20] MEDS: temazepam 15mg capsule PO PRN (20:06)
[2018-01-20] MEDS ORDERED: PHENYLEPH/MIN OIL/PETROLAT hemorrhoid oint 57GM tube RC PRN (20:25)
[2018-01-21] MEDS: risperiDONE 0.5mg tablet PO PRN (01:30)
[2018-01-21] MEDS: levoTHYROXINE 25mcg tablet PO SCH (07:04)
[2018-01-21] MEDS: SYMBICORT IH SCH ×2 (07:05→19:19)
[2018-01-21] MEDS: atorvastatin 20mg tablet PO SCH (07:46)
[2018-01-21] MEDS: duloxetine 30mg CAPSULE.DR PO SCH (07:47)
[2018-01-21] MEDS: metoprolol succinate 25mg (24-HOUR) SR. Tablet PO SCH (07:47)
[2018-01-21] MEDS: LORazepam 0.5 MG tablet PO SCH ×2 (07:49→20:42)
[2018-01-21] MEDS: losartan 50mg tablet PO SCH (07:49)
[2018-01-21] MEDS: risperiDONE 2mg tablet PO SCH ×2 (07:50→21:00)
[2018-01-21 08:00] VITALS: BP 126/68
[2018-01-21] MEDS: LORazepam 0.5 MG tablet PO PRN (14:49)
[2018-01-21 20:00] VITALS: BP 139/87
[2018-01-21] MEDS: temazepam 15mg capsule PO PRN (20:43)
[2018-01-21] MEDS: risperiDONE 0.5mg tablet PO SCH (20:59)
[2018-01-22 07:00] VITALS: BP 137/94
[2018-01-22] MEDS ORDERED: diphenhydrAMINE 25mg capsule PO PRN (07:40)
[2018-01-22] MEDS: SYMBICORT IH SCH ×2 (07:54→18:32)
[2018-01-22] MEDS: metoprolol succinate 25mg (24-HOUR) SR. Tablet PO SCH (08:28)
[2018-01-22] MEDS: duloxetine 30mg CAPSULE.DR PO SCH (08:28)
[2018-01-22] MEDS: levoTHYROXINE 25mcg tablet PO SCH (08:28)
[2018-01-22] MEDS: LORazepam 0.5 MG tablet PO SCH ×2 (08:29→20:42)
[2018-01-22] MEDS: losartan 50mg tablet PO SCH (08:29)
[2018-01-22] MEDS: diphenhydrAMINE 25mg capsule PO PRN (08:30)
[2018-01-22] MEDS: atorvastatin 20mg tablet PO SCH (08:30)
[2018-01-22] MEDS: traMADol 50MG tablet PO PRN ×2 (08:31→20:44)
[2018-01-22] MEDS: risperiDONE 0.5mg tablet PO SCH ×2 (08:32→20:42)
[2018-01-22] MEDS: ALBUTEROL IH (18:33)
[2018-01-22 20:27] VITALS: BP 127/82
[2018-01-22] MEDS: risperiDONE 2mg tablet PO SCH (20:42)
[2018-01-22] MEDS: temazepam 15mg capsule PO PRN (20:43)
[2018-01-23] MEDS: risperiDONE 0.5mg tablet PO PRN (02:37)
[2018-01-23] MEDS: LORazepam 0.5 MG tablet PO PRN (02:37)
[2018-01-23] MEDS: SYMBICORT IH SCH ×2 (07:31→20:50)
[2018-01-23 08:00] VITALS: BP 148/84
[2018-01-23] MEDS: losartan 50mg tablet PO SCH (08:22)
[2018-01-23] MEDS: atorvastatin 20mg tablet PO SCH (08:23)
[2018-01-23] MEDS: levoTHYROXINE 25mcg tablet PO SCH (08:23)
[2018-01-23] MEDS: risperiDONE 0.5mg tablet PO SCH (08:23)
[2018-01-23] MEDS: metoprolol succinate 25mg (24-HOUR) SR. Tablet PO SCH (08:24)
[2018-01-23] MEDS: duloxetine 30mg CAPSULE.DR PO SCH (08:24)
[2018-01-23] MEDS: LORazepam 0.5 MG tablet PO SCH (08:24)
[2018-01-23] MEDS: traMADol 50MG tablet PO PRN ×2 (08:43→21:22)
[2018-01-23] MEDS ORDERED: ALBU8HFA PO (17:55)
[2018-01-23] MEDS ORDERED: ALBU18HF2 INH (17:59)
[2018-01-23] MEDS ORDERED: SIMV40TA4 PO (18:01)
[2018-01-23] MEDS ORDERED: ESTR0.5T4 PO ×2 (18:14→18:28)
[2018-01-23] MEDS ORDERED: LEVO50TA8 PO (18:15)
[2018-01-23] MEDS ORDERED: RISP3TAB3 PO (18:19)
[2018-01-23] MEDS ORDERED: TRAM50TA2 PO (18:19)
[2018-01-23] MEDS ORDERED: RISP1TAB3 PO (18:19)
[2018-01-23] MEDS ORDERED: DIPH25TA27 PO (18:19)
[2018-01-23] MEDS ORDERED: TEMA15CA PO (18:19)
[2018-01-23] MEDS ORDERED: DULO60CA64 PO (18:19)
[2018-01-23] MEDS ORDERED: ATI0.5T PO (18:19)
[2018-01-23] MEDS: diphenhydrAMINE 25mg capsule PO PRN (19:11)
[2018-01-23 20:00] VITALS: BP 130/79
[2018-01-23] MEDS ORDERED: LORazepam 0.5 MG tablet PO SCH (21:00)
[2018-01-23] MEDS ORDERED: risperiDONE 0.5mg tablet PO SCH (21:00)
[2018-01-23] MEDS: temazepam 15mg capsule PO PRN (21:21)
[2018-01-23] MEDS: risperiDONE 2mg tablet PO SCH (21:21)
[2018-01-24] MEDS: levoTHYROXINE 25mcg tablet PO SCH (07:29)
[2018-01-24 08:00] VITALS: BP 175/82
[2018-01-24] MEDS ORDERED: risperiDONE 0.5mg tablet PO SCH (08:00)
[2018-01-24] MEDS: losartan 50mg tablet PO SCH (08:24)
[2018-01-24] MEDS: duloxetine 30mg CAPSULE.DR PO SCH (08:24)
[2018-01-24] MEDS: atorvastatin 20mg tablet PO SCH (08:24)
[2018-01-24] MEDS: metoprolol succinate 25mg (24-HOUR) SR. Tablet PO SCH (08:24)
[2018-01-24] MEDS: traMADol 50MG tablet PO PRN (08:30)
[2018-01-24] MEDS: diphenhydrAMINE 25mg capsule PO PRN (08:30)
[2018-01-24] MEDS: SYMBICORT IH SCH (09:15)
== END 2018-01-24 11:55 | disposition home or self-care (01) | DRG 885 ==
LOC: ED HOLD 12:31 → ADULT MH 15:00
PROVIDERS: ADMIT Psychiatry & Neurology Psychiatry; ATTEND Psychiatry & Neurology Psychiatry
DX: F33.3 Major depressive disorder, recurrent, severe with psychotic symptoms (principal); E03.9 Hypothyroidism, unspecified; E11.9 Type 2 diabetes mellitus without complications; J44.9 Chronic obstructive pulmonary disease, unspecified; E78.5 Hyperlipidemia, unspecified; F43.12 Post-traumatic stress disorder, chronic; G47.00 Insomnia, unspecified; I10 Essential (primary) hypertension; Z96.643 Presence of artificial hip joint, bilateral; Z88.6 Allergy status to analgesic agent; Z88.0 Allergy status to penicillin; Z79.899 Other long term (current) drug therapy; Z87.01 Personal history of pneumonia (recurrent); Z80.1 Family history of malignant neoplasm of trachea, bronchus and lung
CPT/HCPCS: 36415; 71045; 80053; 80061; 83036; 85025; 87070; 94640; 94760; J7626; Q0163; Q0177

== ENCOUNTER 2018-03-02 14:57 | Emergency (ER) | payer MEDICARE ==
[~2018-03-02] VITALS: Ht 157.5 cm; Wt 67.3 kg
[~2018-03-02 14:57] MED LIST changes: +ATI0.5T PO; -BUPR150T6 PO; -CITA-311 PO; +DIPH25TA27 PO; +DULO60CA64 PO; -EST1T PO; +ESTR0.5T4 PO; -HYDR-3686 PO; -LEVO50TA PO; +RISP1TAB3 PO; +RISP3TAB3 PO; -SIMV40TA PO; +SIMV40TA4 PO; +TEMA15CA PO
--- NOTE | 2018-03-02 15:10 | NUR ---
Unable to obtain EKG due to machine not reading heart rhythm will repeat with another EKG machine.
[2018-03-02 15:22] LABS: BASOPHILS % (AUTO) 0.6 % (0-1); EOSINOPHILS # (AUTO) 0.3 X10'3 (0-0.9); EOSINOPHILS % (AUTO) 6.3 % (0-6); HEMATOCRIT 36.5 % (35.0-45.0); LYMPHOCYTES # (AUTO) 0.9 X10'3 (1.1-4.8); MEAN CORPUSCULAR HEMOGLOBIN 31.6 PG (27.0-31.0); MEAN CORPUSCULAR HGB CONC 32.9 % (33.0-36.5); MEAN CORPUSCULAR VOLUME 96.3 FL (78-98); MONOCYTES # (AUTO) 0.4 X10'3 (0-0.9); NEUTROPHILS # (AUTO) 3.7 X10'3 (1.8-7.7); NEUTROPHILS % (AUTO) 68.1 % (42-75); PLATELET COUNT 268 X10'3 (140-440); RED BLOOD COUNT 3.79 X10'6 (4.20-5.60); RED CELL DISTRIBUTION WIDTH 13.5 % (11.5-14.5); WHITE BLOOD COUNT 5.5 X10'3 (4.5-11.0)
[2018-03-02 15:36] LABS: INR 0.9 INR; PARTIAL THROMBOPLASTIN TIME 28 SECONDS (22-32); PROTHROMBIN TIME 9.6 SECONDS (9.0-12.0)
[2018-03-02 15:37] LABS: ALANINE AMINOTRANSFERASE 22 U/L (12-78); ALBUMIN 3.5 G/DL (3.4-5.0); ALKALINE PHOSPHATASE 73 IU/L (46-116); ANION GAP 12 (8-16); ASPARTATE AMINO TRANSFERASE 16 U/L (10-37); BILIRUBIN,TOTAL 0.2 MG/DL (0.1-1.0); BLOOD UREA NITROGEN 10 MG/DL (7-18); BUN/CREATININE RATIO 11.6 (6.6-38.0); CALCIUM 8.9 MG/DL (8.5-10.1); CHLORIDE 100 MMOL/L (99-107); CREATININE 0.86 MG/DL (0.40-0.90); GLUCOSE 117 MG/DL (70-104); POTASSIUM 3.9 MMOL/L (3.5-5.1); SODIUM 140 MMOL/L (135-145); TOTAL CARBON DIOXIDE 28.3 MMOL/L (24-32); TOTAL PROTEIN 7.1 G/DL (6.4-8.2); eGFR 65 ML/MIN
[2018-03-02] MEDS ORDERED: LORazepam 1 MG tablet PO ONE (15:45)
[2018-03-02 15:54] VITALS: BP 151/86
[2018-03-02] MEDS ORDERED: ipratropium/albuterol 3ml nebule NEB ONE (15:55)
[2018-03-02] MEDS ORDERED: AZIT-63 PO (18:04)
== END 2018-03-02 18:20 | disposition home or self-care (01) ==
LOC: ER 14:58
DX: J40 Bronchitis, not specified as acute or chronic (principal); J44.9 Chronic obstructive pulmonary disease, unspecified; Z88.0 Allergy status to penicillin; Z88.8 Allergy status to other drugs, medicaments and biological substances; Z79.2 Long term (current) use of antibiotics; Z79.899 Other long term (current) drug therapy; Z60.2 Problems related to living alone
CPT/HCPCS: 36415; 71045; 80053; 84484; 85025; 85610; 85730; 87502; 87503; 93005; 94640; 94760; 99284

== ENCOUNTER 2018-10-13 02:14 | Emergency (ER) | payer MEDICARE ==
[~2018-10-13] VITALS: Ht 157.5 cm; Wt 61.2 kg
[~2018-10-13 02:14] MED LIST changes: -DULO60CA64 PO; +DULO60CA65 PO; -TEMA15CA PO
[2018-10-13 02:21] VITALS: BP 139/89
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
[2018-10-13] MEDS ORDERED: HYDROcodone/acetaminophen 10/325mg tab PO ONE (05:15)
--- NOTE | 2018-10-13 05:16 | NUR ---
ATTEMPTED TO HAVE PT PROVIDE A UA SAMPLE AND EVEN PROVIDED PATIENT WITH WATER TO DRINK BUT SHE IS UNABLE TO GIVE A SAMPLE. PT STATES SHE WENT TO THE TOILET AND VOIDED X1
[2018-10-13] MEDS ORDERED: CLIN-96 PO (05:19)
[2018-10-13] MEDS ORDERED: clindamycin 150mg capsule PO ONE (05:20)
== END 2018-10-13 05:37 | disposition home or self-care (01) ==
LOC: ER 02:14
DX: S00.11XA Contusion of right eyelid and periocular area, initial encounter (principal); S00.83XA Contusion of other part of head, initial encounter; G47.00 Insomnia, unspecified; R60.0 Localized edema; I10 Essential (primary) hypertension; J44.9 Chronic obstructive pulmonary disease, unspecified; F32.9 Major depressive disorder, single episode, unspecified; Z60.2 Problems related to living alone; Z88.0 Allergy status to penicillin; Z79.899 Other long term (current) drug therapy; W18.39XA Other fall on same level, initial encounter; Y93.89 Activity, other specified; Y92.89 Other specified places as the place of occurrence of the external cause; Y99.8 Other external cause status
CPT/HCPCS: 99284

== ENCOUNTER 2018-11-24 19:45 | Emergency (ER) | payer MEDICARE ==
[~2018-11-24] VITALS: Ht 160 cm; Wt 59.0 kg
[~2018-11-24 19:45] MED LIST changes: +CLIN-96 PO
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
[2018-11-24] MEDS ORDERED: LORazepam 1 MG tablet PO ONE (20:55)
[2018-11-24 21:18] LABS: BASOPHILS # (AUTO) 0.1 X10'3 (0-0.2); BASOPHILS % (AUTO) 0.9 % (0-1); EOSINOPHILS # (AUTO) 1.3 X10'3 (0-0.9); EOSINOPHILS % (AUTO) 17.1 % (0-6); HEMATOCRIT 34.1 % (35.0-45.0); HEMOGLOBIN 11.5 g/dl (12.0-16.0); LYMPHOCYTES # (AUTO) 1.2 X10'3 (1.1-4.8); LYMPHOCYTES % (AUTO) 15.9 % (21-51); MEAN CORPUSCULAR HEMOGLOBIN 32.6 PG (27.0-31.0); MEAN CORPUSCULAR HGB CONC 33.8 g/dL (33.0-36.5); MEAN CORPUSCULAR VOLUME 96.6 FL (78-98); MEAN PLATELET VOLUME 7.2 FL (7.4-10.4); MONOCYTES # (AUTO) 0.8 X10'3 (0-0.9); NEUTROPHILS # (AUTO) 4.3 X10'3 (1.8-7.7); NEUTROPHILS % (AUTO) 56.1 % (42-75); PLATELET COUNT 299 X10'3 (140-440); RED BLOOD COUNT 3.53 X10'6 (4.20-5.60); RED CELL DISTRIBUTION WIDTH 14.7 % (11.5-14.5); WHITE BLOOD COUNT 7.7 X10'3 (4.5-11.0)
[2018-11-24 21:30] LABS: ALANINE AMINOTRANSFERASE 21 U/L (12-78); ALBUMIN 3.5 G/DL (3.4-5.0); ALKALINE PHOSPHATASE 76 IU/L (46-116); ANION GAP 10 (8-16); ASPARTATE AMINO TRANSFERASE 14 U/L (10-37); BILIRUBIN,TOTAL 0.2 MG/DL (0.1-1.0); BLOOD UREA NITROGEN 17 MG/DL (7-18); BUN/CREATININE RATIO 21.3 (6.6-38.0); CHLORIDE 103 MMOL/L (99-107); GLUCOSE 113 MG/DL (70-104); POTASSIUM 3.8 MMOL/L (3.5-5.1); SODIUM 139 MMOL/L (135-145); TOTAL CARBON DIOXIDE 26.1 MMOL/L (24-32); eGFR 70 ML/MIN
[2018-11-24 21:40] LABS: ETHANOL < 0.010 GM/DL (0.0-0.010)
--- NOTE | 2018-11-24 21:54 | NUR ---
pt tried urinted but unable to urinate at this time will let dr gonsales know.
[2018-11-24 22:48] LABS: CLARITY,URINE CLEAR (Clear); COLOR,URINE YELLOW (Yellow); GLUCOSE, URINE NEGATIVE (Neg); KETONES,URINE NEGATIVE (Neg); LEUKOCYTE ESTERASE ,URINE NEGATIVE (Neg); NITRITES, URINE NEGATIVE (Neg); OCCULT BLOOD,URINE MODERATE (Neg); PROTEIN,URINE 100 mg/dl (Neg); UROBILINOGEN,URINE 0.2 E.U/dL (0.2-1.0)
[2018-11-24] MEDS ORDERED: QUET-1 PO (22:51)
[2018-11-24] MEDS ORDERED: MULT-933 PO (22:51)
[2018-11-24] MEDS ORDERED: FLUO20CA39 PO (22:51)
--- NOTE | 2018-11-24 22:53 | NUR ---
pt verbalized which all medication pt takes med rec done as per pt list of medication stated verbally.
[2018-11-24 22:56] LABS: UA COLLECTION TYPE CLN CATCH MIDSTREAM
[2018-11-24 22:58] LABS: BACTERIA,URINE FEW /HPF (Neg); RBC,URINE 0-2 /HPF (0-2); SQUAMOUS EPITHELIAL CELL,UR MODERATE /LPF (FEW); WBC,URINE 0-4 /HPF (0-4)
[2018-11-24 23:01] LABS: URINE AMPHETAMINE SCREEN NEGATIVE (Neg); URINE BARBITUATE SCREEN NEGATIVE (Neg); URINE BENZODIAZEPINES SCREEN NEGATIVE (Neg); URINE CANNABINOID SCREEN NEGATIVE (Neg); URINE COCAINE SCREEN NEGATIVE (Neg); URINE METHADONE SCREEN NEGATIVE (Neg); URINE OPIATE SCREEN NEGATIVE (Neg); URINE PHENCYCLIDINE SCREEN NEGATIVE (Neg)
--- NOTE | 2018-11-25 00:30 | NUR ---
pt requesting respiratory treatment stating she has surgery tomorrow for a lung transplant.
[2018-11-25] MEDS ORDERED: albuterol 2.5 MG/3 ML nebule NEB PRN (01:30)
[2018-11-25] MEDS: albuterol 2.5 MG/3 ML nebule NEB SCH ×4 (01:42→20:29)
--- NOTE | 2018-11-25 04:00 | NUR ---
Pt awake requesting "valium" to help her sleep. New orders obtained.
[2018-11-25] MEDS ORDERED: LORazepam 1 MG tablet PO ONE (04:10)
--- NOTE | 2018-11-25 06:54 | NUR ---
pt came up to nurses station requesting neb tx. RN paged respiratory for tx.
[2018-11-25] MEDS: budesonide 0.5mg/2ml UD nebule IH SCH ×2 (07:30→20:28)
[2018-11-25] MEDS ORDERED: FLUoxetine 20mg capsule PO SCH (08:00)
[2018-11-25] MEDS ORDERED: metoprolol succinate 25mg (24-HOUR) SR. Tablet PO SCH ×2 (08:00→18:00)
[2018-11-25] MEDS ORDERED: losartan 50mg tablet PO SCH ×2 (08:00→18:00)
--- NOTE | 2018-11-25 09:17 | NUR ---
breaking primary RN, pt is supine in bed regular breathing present, pt appears to be sleeping mouth open, eyes closed. will continue to monitor
--- NOTE | 2018-11-25 09:26 | NUR ---
pt is sleeping did not awaken to give medications due at 0800
[2018-11-25] MEDS: multivitamins, therapeutics tablet PO SCH (10:48)
--- NOTE | 2018-11-25 10:55 | NUR ---
covering primary nurse during her break. pt. is resting in bed with HOB up. pt. appears to be in no distress.
--- NOTE | 2018-11-25 10:57 | NUR ---
pt. up to bathroom.
--- NOTE | 2018-11-25 11:33 | NUR ---
Pt called RN over to her room requesting her Prozac because she feels sad, pt is tearful. RN stated she already gave pt her Prozac. Pt requesting something for sadness and anxiety and her home dose of Tramadol for her right shoulder pain. spoke with Dr. Bender and stated ok to order Ativan 1mg q6h PRN and pts home Tramadol 50mg q6h PRN.
[2018-11-25] MEDS ORDERED: traMADol 50MG tablet PO PRN (11:40)
[2018-11-25] MEDS: LORazepam 1 MG tablet PO PRN (11:58)
--- NOTE | 2018-11-25 12:03 | NUR ---
Pt's Metoprolol and Cozaar due at 0800. Pt states she takes them at night with dinner. RN looked into home med schedule and confirmed doses given at night. lease administration supervisor times changed to 1800.
[2018-11-25] MEDS ORDERED: FLUO10CA51 PO (12:50)
--- NOTE | 2018-11-25 12:52 | NUR ---
breaking primary rn, pt is supine in bed,awake, knees raised, no s/s of anxiety apparent
[2018-11-25] MEDS ORDERED: HYDR-3686 PO (12:54)
[2018-11-25] MEDS ORDERED: RISP0.5T74 PO (12:54)
[2018-11-25] MEDS ORDERED: SIMV40TA PO (12:54)
[2018-11-25] MEDS ORDERED: TRAM50TA2 PO (12:54)
[2018-11-25] MEDS ORDERED: DESV25TA PO (12:54)
--- NOTE | 2018-11-25 12:59 | NUR ---
pharmacy called, said that they checked external meds and added medications that she should be taking, requested that I print med rec and have provider sign
[2018-11-25] MEDS ORDERED: hydrOXYzine 25 MG tablet PO PRN (14:25)
--- NOTE | 2018-11-25 19:47 | NUR ---
PT AWOKE AND ATE APPROX 50% OF DINNER. WENT TO BATHROOM AFTER DINNER, GAIT WAS STEADY.
[2018-11-25] MEDS: quetiapine 100mg tablet PO SCH (20:04)
[2018-11-25] MEDS: atorvastatin 20mg tablet PO SCH (20:04)
[2018-11-25] MEDS: traMADol 50MG tablet PO PRN (20:07)
--- NOTE | 2018-11-25 20:34 | NUR ---
PT IS GETTING BREATHING TX NOW.
[2018-11-25] MEDS ORDERED: risperiDONE 0.5mg tablet PO SCH (21:00)
--- NOTE | 2018-11-25 21:43 | NUR ---
PT IS SLEEPING, SNORING. NO S/S OF DISTRESS NOTED.
--- NOTE | 2018-11-26 02:13 | NUR ---
The patient appears asleep
[2018-11-26] MEDS: albuterol 2.5 MG/3 ML nebule NEB SCH ×4 (02:29→20:22)
--- NOTE | 2018-11-26 03:17 | NUR ---
The patient appears to be sleeping
[2018-11-26] MEDS: traMADol 50MG tablet PO PRN ×2 (05:46→19:40)
--- NOTE | 2018-11-26 07:02 | NUR ---
pt sleeping quietly in bed.
[2018-11-26] MEDS ORDERED: FLUoxetine 10mg capsule PO SCH (08:00)
[2018-11-26] MEDS: FLUoxetine 10mg capsule PO SCH (08:13)
[2018-11-26] MEDS: multivitamins, therapeutics tablet PO SCH (08:13)
[2018-11-26] MEDS: venlafaxine 25mg tablet PO SCH ×2 (08:13→13:00)
[2018-11-26] MEDS: budesonide 0.5mg/2ml UD nebule IH SCH ×2 (08:59→20:22)
--- NOTE | 2018-11-26 09:17 | NUR ---
pt called RN to bedside and stated she felt like her heart was racing. Pt just completed a neb treatment. Connected pt to pulse ox and HR was 90. Instructed pt to take deep breathes and educated pt on side effects of albuterol neb treatment. Pt reported relief of feelings. Provided pt with decaf coffee upon request.
[2018-11-26] MEDS: LORazepam 1 MG tablet PO PRN (09:46)
--- NOTE | 2018-11-26 10:00 | NUR ---
PAGE SENT TO DR. Guerin FOR MED REQ
--- NOTE | 2018-11-26 12:37 | NUR ---
pt resting quietly in bed.
--- NOTE | 2018-11-26 13:43 | NUR ---
pt has intermitent non-productive wet cough. RN asked Dr. Bender for cough med per pt request. Order for Robitussin obtained and placed.
[2018-11-26] MEDS ORDERED: guaiFENesin/DM 10ml UD oral syrup PO PRN (13:45)
--- NOTE | 2018-11-26 15:22 | NUR ---
pt calm and resting quietly in bed.
--- NOTE | 2018-11-26 17:22 | NUR ---
pt walked to the door, stopped by nursing staff. Pt stated she had to meet someone at the front door so she could leave. Pt redirected back to her bed. Is now sitting in bed quietly.
[2018-11-26] MEDS: losartan 50mg tablet PO SCH (19:39)
[2018-11-26] MEDS: metoprolol succinate 25mg (24-HOUR) SR. Tablet PO SCH (19:40)
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
[2018-11-26] MEDS: quetiapine 100mg tablet PO SCH (20:31)
[2018-11-26] MEDS: atorvastatin 20mg tablet PO SCH (20:31)
[2018-11-26] MEDS: risperiDONE 0.5mg tablet PO SCH (20:32)
--- NOTE | 2018-11-26 22:20 | NUR ---
The patient appears to be asleep
--- NOTE | 2018-11-27 00:01 | NUR ---
The patient appears to be asleep
--- NOTE | 2018-11-27 02:45 | NUR ---
The patient appears to be sleeping
[2018-11-27] MEDS: albuterol 2.5 MG/3 ML nebule NEB SCH ×4 (02:50→20:51)
[2018-11-27] MEDS: LORazepam 1 MG tablet PO PRN ×3 (04:05→22:25)
--- NOTE | 2018-11-27 04:39 | NUR ---
The patient is complaining of nasal congestion and MD made aware
--- NOTE | 2018-11-27 07:00 | NUR ---
Received Pt sleeping in bed w/o distress at change of shift.
[2018-11-27] MEDS: budesonide 0.5mg/2ml UD nebule IH SCH ×2 (08:29→20:51)
[2018-11-27] MEDS: multivitamins, therapeutics tablet PO SCH (08:51)
[2018-11-27] MEDS: FLUoxetine 10mg capsule PO SCH (08:52)
--- NOTE | 2018-11-27 10:00 | NUR ---
Pt in bed resting at this time. Ate small amount of breakfast, stating she was not hungry and also needed to not eat due to having lung transplant surgery today. Pt attemped to walk off unit, but was redirected back to her bed. Received Ativan PRN per her request r/t anxiety. Frequently states that she hears the phone ringing or her Dr talking near by. States she has gotten a call that her surgery is today. She received respiratory Tx this AM and is breathing easier with occassional cough.
--- NOTE | 2018-11-27 10:27 | NUR ---
breaking primary RN, pt sitting up in bed, she just rcvd ativan from primary, 02 given via UT, has couph
--- NOTE | 2018-11-27 10:32 | NUR ---
pt was trying to leave unit, looking for Dr Mckeon, says she is having surgery, has a room at [facility] room 304, she was redirected back to bed, [address]
--- NOTE | 2018-11-27 13:00 | NUR ---
Pt resting in bed with occassional cough. Remains delusional. Pleasant. Ambulates to bathroom as needed.
[2018-11-27] MEDS: traMADol 50MG tablet PO PRN ×2 (16:39→20:44)
[2018-11-27] MEDS: losartan 50mg tablet PO SCH (18:19)
--- NOTE | 2018-11-27 18:25 | NUR ---
Pt resting in bed w/o distress. Received PRN for pain with good effect. Pleasant and cooperative and continues to get out of bed to use toilet by self.
--- NOTE | 2018-11-27 19:03 | NUR ---
Joyce alegria in ED - 11/27/18 at 1905 by BRYAN Patient personal care attendant is here from the [facility]al [facility] Unit. Patient is being transfered to their unit. Patient is cooperative with tech at this time.
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
[2018-11-27] MEDS: risperiDONE 0.5mg tablet PO SCH (20:43)
[2018-11-27] MEDS: quetiapine 100mg tablet PO SCH (20:44)
[2018-11-27] MEDS: atorvastatin 20mg tablet PO SCH (20:45)
[2018-11-27] MEDS: metoprolol succinate 25mg (24-HOUR) SR. Tablet PO SCH (20:45)
--- NOTE | 2018-11-27 22:52 | NUR ---
Patient is sleeping quietly, 2 LPM of O2 by N/C is in place. Low fowlers in bed. In direct view from the nursing station.
--- NOTE | 2018-11-28 00:58 | NUR ---
Joyce alegria in [facility] - 11/28/18 at 0202 by BRYAN Patient is sleeping quietly on his left side.
--- NOTE | 2018-11-28 01:32 | NUR ---
Patient awoke and yelled. She complains of SOB. On O2 at 2 LPM while sleeping. Patient SaO2 ia 82 percent. BP is 217/122, Resp rate 24, mild accessary muscle use. Unable to hear inspiratory sounds in any field, expiratory wheezing to all tan. A dry, non productive cough is present. Stat page is done for RT Albuterol treatment.
[2018-11-28] MEDS: albuterol 2.5 MG/3 ML nebule NEB SCH ×2 (01:39→08:00)
--- NOTE | 2018-11-28 01:39 | NUR ---
RT is here evaluating patient now. Albuterol being given by N now.
--- NOTE | 2018-11-28 01:57 | NUR ---
Patient is breathing well again. Only slight bilateral wheezing noted. Increased tidal volume. Resp rate is 16 without accessary muscle use. SaO2 is 91 percent on 2 LPM. Patient is mid fowlers position in bed and returning to sleep.
--- NOTE | 2018-11-28 02:00 | NUR ---
Patient is sleeping quietly on his right side. He is pink, warm, and dry. Patient in direct view from the nursing station.
--- NOTE | 2018-11-28 05:37 | NUR ---
Patient is sleeping low fowlers in bed. Respirations are normal and quiet. On 2 lpm by n/c.
[2018-11-28 05:57] VITALS: BP 135/77
--- NOTE | 2018-11-28 07:30 | NUR ---
Patient awoke, has moist, non-productive cough. Remains on 2L O2 via NC. Requested respiratory treatment. LS diminished t/o with expiratory wheezes. Continues to state that she needs to be discharged today for a scheduled surgery at [facility]. According to family this is not the situation.
[2018-11-28] MEDS: budesonide 0.5mg/2ml UD nebule IH SCH (08:00)
[2018-11-28] MEDS: FLUoxetine 10mg capsule PO SCH (08:48)
[2018-11-28] MEDS: multivitamins, therapeutics tablet PO SCH (08:48)
--- NOTE | 2018-11-28 09:30 | NUR ---
Patient resting comfortably, spoke with son on phone, plan is to discharge home with son at around 1230.
[2018-11-28] MEDS ORDERED: LORA0.5T PO (10:07)
[2018-11-28] MEDS: LORazepam 1 MG tablet PO PRN (10:27)
--- NOTE | 2018-11-28 10:30 | NUR ---
Requested ativan for increasing anxiety. Medicated per order.
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
== END 2018-11-28 12:39 | disposition home or self-care (01) ==
LOC: ER 19:46
DX: F29 Unspecified psychosis not due to a substance or known physiological condition (principal); F32.9 Major depressive disorder, single episode, unspecified; J44.9 Chronic obstructive pulmonary disease, unspecified; Z87.891 Personal history of nicotine dependence; Z79.899 Other long term (current) drug therapy; Z88.6 Allergy status to analgesic agent; Z88.0 Allergy status to penicillin
CPT/HCPCS: 36415; 80053; 80305; 80320; 81001; 84443; 85025; 94640; 94760; 99285; J7626; Z7610

== ENCOUNTER 2019-01-04 09:55 | Emergency (ER) | payer MEDICARE ==
[~2019-01-04] VITALS: Ht 160 cm; Wt 70.5 kg
[~2019-01-04 09:55] MED LIST changes: -ATI0.5T PO; -CLIN-96 PO; +DESV25TA PO; -DIPH25TA27 PO; -DULO60CA65 PO; -ESTR0.5T4 PO; +FLUO10CA51 PO; +HYDR-3686 PO; +MULT-933 PO; +QUET-1 PO; +RISP0.5T74 PO; -RISP1TAB3 PO; -RISP3TAB3 PO; +SIMV40TA PO; -SIMV40TA4 PO
--- NOTE | 2019-01-04 10:19 | NUR ---
PATIENT IS HERE WITH HER SON, TOREY. HIS CONTACT NUMBER IS [phone]
[2019-01-04 11:29] LABS: URINE AMPHETAMINE SCREEN NEGATIVE (Neg); URINE BARBITUATE SCREEN NEGATIVE (Neg); URINE BENZODIAZEPINES SCREEN NEGATIVE (Neg); URINE CANNABINOID SCREEN NEGATIVE (Neg); URINE COCAINE SCREEN NEGATIVE (Neg); URINE METHADONE SCREEN NEGATIVE (Neg); URINE OPIATE SCREEN NEGATIVE (Neg); URINE PHENCYCLIDINE SCREEN NEGATIVE (Neg)
[2019-01-04 11:32] LABS: BASOPHILS % (AUTO) 0.4 % (0-1); EOSINOPHILS # (AUTO) 0.2 X10'3 (0-0.9); EOSINOPHILS % (AUTO) 2.3 % (0-6); HEMATOCRIT 32.3 % (35.0-45.0); HEMOGLOBIN 11.1 g/dl (12.0-16.0); LYMPHOCYTES # (AUTO) 0.7 X10'3 (1.1-4.8); LYMPHOCYTES % (AUTO) 11.3 % (21-51); MEAN CORPUSCULAR HEMOGLOBIN 33.1 PG (27.0-31.0); MEAN CORPUSCULAR HGB CONC 34.4 g/dL (33.0-36.5); MEAN CORPUSCULAR VOLUME 96.3 FL (78-98); MEAN PLATELET VOLUME 7.1 FL (7.4-10.4); MONOCYTES # (AUTO) 0.5 X10'3 (0-0.9); MONOCYTES % (AUTO) 7.5 % (2-12); NEUTROPHILS # (AUTO) 5.2 X10'3 (1.8-7.7); NEUTROPHILS % (AUTO) 78.5 % (42-75); PLATELET COUNT 250 X10'3 (140-440); RED BLOOD COUNT 3.35 X10'6 (4.20-5.60); RED CELL DISTRIBUTION WIDTH 13.8 % (11.5-14.5); WHITE BLOOD COUNT 6.6 X10'3 (4.5-11.0)
[2019-01-04 11:34] LABS: CLARITY,URINE CLEAR (Clear); COLOR,URINE STRAW (Yellow); GLUCOSE, URINE NEGATIVE (Neg); KETONES,URINE NEGATIVE (Neg); LEUKOCYTE ESTERASE ,URINE NEGATIVE (Neg); NITRITES, URINE NEGATIVE (Neg); OCCULT BLOOD,URINE SMALL (Neg); PROTEIN,URINE TRACE mg/dl (Neg); UROBILINOGEN,URINE 0.2 E.U/dL (0.2-1.0)
[2019-01-04 11:35] LABS: UA COLLECTION TYPE CLN CATCH MIDSTREAM
[2019-01-04 11:40] LABS: ALANINE AMINOTRANSFERASE 17 U/L (12-78); ALBUMIN 3.5 G/DL (3.4-5.0); ALBUMIN/GLOBULIN RATIO 1.1 (1.1-1.5); ALKALINE PHOSPHATASE 72 IU/L (46-116); ANION GAP 6 (8-16); ASPARTATE AMINO TRANSFERASE 16 U/L (10-37); BILIRUBIN,TOTAL 0.3 MG/DL (0.1-1.0); BLOOD UREA NITROGEN 15 MG/DL (7-18); BUN/CREATININE RATIO 23.1 (6.6-38.0); CHLORIDE 99 MMOL/L (99-107); CREATININE 0.65 MG/DL (0.40-0.90); ETHANOL < 0.010 GM/DL (0.0-0.010); GLUCOSE 107 MG/DL (70-104); POTASSIUM 4.4 MMOL/L (3.5-5.1); SODIUM 132 MMOL/L (135-145); TOTAL PROTEIN 6.6 G/DL (6.4-8.2); eGFR 89 ML/MIN
[2019-01-04 11:46] LABS: WBC,URINE 0-4 /HPF (0-4)
[2019-01-04 11:47] LABS: BACTERIA,URINE FEW /HPF (Neg); MUCUS STRANDS NONE SEEN /LPF (Neg); RBC,URINE NONE SEEN /HPF (0-2); SQUAMOUS EPITHELIAL CELL,UR FEW /LPF (FEW)
--- NOTE | 2019-01-04 11:55 | NUR ---
Received report from Manuela concerning pt
--- NOTE | 2019-01-04 11:57 | NUR ---
Breaking primary RN, pt is in with staff getting changed into green scrubs, pt is insisting that she needs to get an IV placed
[2019-01-04] MEDS ORDERED: hydrOXYzine 25 MG tablet PO PRN (12:15)
--- NOTE | 2019-01-04 12:22 | NUR ---
PT CALLED DOCK ATTENDANT TO THE BED AND STATES "MY DOCTOR JUST TOLD ME I HAVE BLOOD COMING THRU THE BACK OF MY SHIRT AND I NEED A AIRCRAFT SEAT UPHOLSTERER". ASSURED PT THERE IS NO BLOOD ON THE BACK OF HER SHIRT.
--- NOTE | 2019-01-04 12:39 | NUR ---
ELOPEMENT BAND #[id number] PLACED ON PTS R WRIST
[2019-01-04] MEDS ORDERED: albuterol 2.5 MG/3 ML nebule NEB PRN (12:50)
--- NOTE | 2019-01-04 12:59 | NUR ---
Pt sitting up and eating lunch
[2019-01-04] MEDS ORDERED: metoprolol succinate 25mg (24-HOUR) SR. Tablet PO SCH (13:00)
[2019-01-04] MEDS ORDERED: FLUoxetine 10mg capsule PO SCH (13:00)
[2019-01-04] MEDS ORDERED: losartan 25mg tablet PO SCH (13:00)
--- NOTE | 2019-01-04 13:11 | NUR ---
Breaking primary RN, pt just finished eating her lunch, only ate about 25%
--- NOTE | 2019-01-04 13:15 | NUR ---
respiratory at bedside
--- NOTE | 2019-01-04 13:54 | NUR ---
Pt asleep on back in no distress. She is in view of RN
[2019-01-04] MEDS ORDERED: albuterol 2.5 MG/3 ML nebule NEB SCH (15:00)
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
[2019-01-04 15:42] VITALS: BP 145/81
--- NOTE | 2019-01-04 17:00 | NUR ---
PT IS LAYING ON LEFT SIDE, TEARFUL, STATING WHISPERING "HELP ME".
--- NOTE | 2019-01-04 17:24 | NUR ---
Pt being evaluated by Viviana SOLARES
--- NOTE | 2019-01-04 18:30 | NUR ---
Received report and assumed care of patient from HAILE Bruno.
[2019-01-04] MEDS ORDERED: albuterol 2.5 MG/3 ML nebule NEB ONE ×2 (18:40→19:00)
[2019-01-04] MEDS ORDERED: AZIT-63 PO (18:49)
--- NOTE | 2019-01-04 19:20 | NUR ---
Call received from the patient's son. He will be coming to pick his mother up.
[2019-01-04] MEDS ORDERED: budesonide 0.5mg/2ml UD nebule IH SCH (20:00)
[2019-01-04] MEDS ORDERED: risperiDONE 0.5mg tablet PO SCH (21:00)
[2019-01-04] MEDS ORDERED: quetiapine 100mg tablet PO SCH (21:00)
[2019-01-04] MEDS ORDERED: atorvastatin 20mg tablet PO SCH (21:00)
[2019-01-05] MEDS ORDERED: multivitamins, therapeutics tablet PO SCH (08:00)
[2019-01-05] MEDS ORDERED: losartan 50mg tablet PO SCH (08:00)
== END 2019-01-04 20:21 | disposition home or self-care (01) ==
LOC: ER 09:56
DX: F41.9 Anxiety disorder, unspecified (principal); R06.02 Shortness of breath; J44.9 Chronic obstructive pulmonary disease, unspecified; F32.9 Major depressive disorder, single episode, unspecified; Z87.01 Personal history of pneumonia (recurrent); Z88.6 Allergy status to analgesic agent; Z88.0 Allergy status to penicillin; Z79.2 Long term (current) use of antibiotics; Z79.899 Other long term (current) drug therapy
CPT/HCPCS: 36415; 80053; 80305; 80320; 81001; 84443; 85025; 94640; 94760; 99284; Z7610; J7626

== ENCOUNTER 2019-01-20 11:41 | Inpatient (IN) | payer MEDICARE ==
[~2019-01-20] VITALS: Ht 160 cm; Wt 54.8 kg
[~2019-01-20 11:41] MED LIST changes: +AZIT-63 PO
[2019-01-20 12:27] LABS: BASOPHILS % (AUTO) 0.6 % (0-1); EOSINOPHILS % (AUTO) 14.3 % (0-6); LYMPHOCYTES # (AUTO) 0.7 X10'3 (1.1-4.8); MEAN CORPUSCULAR HEMOGLOBIN 32.6 PG (27.0-31.0); MEAN CORPUSCULAR HGB CONC 33.4 g/dL (33.0-36.5); MEAN CORPUSCULAR VOLUME 97.6 FL (78-98); MEAN PLATELET VOLUME 6.6 FL (7.4-10.4); MONOCYTES # (AUTO) 0.4 X10'3 (0-0.9); MONOCYTES % (AUTO) 6.3 % (2-12); NEUTROPHILS # (AUTO) 4.8 X10'3 (1.8-7.7); NEUTROPHILS % (AUTO) 68.8 % (42-75); PLATELET COUNT 274 X10'3 (140-440); RED BLOOD COUNT 3.69 X10'6 (4.20-5.60)
[2019-01-20 12:45] LABS: ALANINE AMINOTRANSFERASE 22 U/L (12-78); ALBUMIN 3.8 G/DL (3.4-5.0); ALBUMIN/GLOBULIN RATIO 1.2 (1.1-1.5); ALKALINE PHOSPHATASE 80 IU/L (46-116); ANION GAP 7 (8-16); ASPARTATE AMINO TRANSFERASE 18 U/L (10-37); BILIRUBIN,TOTAL 0.3 MG/DL (0.1-1.0); BLOOD UREA NITROGEN 7 MG/DL (7-18); BUN/CREATININE RATIO 9.3 (6.6-38.0); CALCIUM 9.1 MG/DL (8.5-10.1); CHLORIDE 103 MMOL/L (99-107); CREATININE 0.75 MG/DL (0.40-0.90); GLUCOSE 115 MG/DL (70-104); PARTIAL THROMBOPLASTIN TIME 25 SECONDS (22-32); POTASSIUM 4.1 MMOL/L (3.5-5.1); SODIUM 140 MMOL/L (135-145); TOTAL CARBON DIOXIDE 30.4 MMOL/L (24-32); TOTAL PROTEIN 7.1 G/DL (6.4-8.2); eGFR 76 ML/MIN
[2019-01-20] MEDS ORDERED: albuterol 2.5 MG/3 ML nebule CONTNEB PRN (13:35)
[2019-01-20] MEDS ORDERED: morphine 4 MG/ML inj SYRINge IV ONE (13:35)
[2019-01-20] MEDS ORDERED: normal saline 1000ML IV soln IVB ONE (13:35)
[2019-01-20] MEDS ORDERED: azithromycin/NS 500mg/250ml 250 ML IV ONE (13:35)
[2019-01-20] MEDS ORDERED: CefTRIAXone 2gm/D5W 50ml 50 ML IV ONE (13:35)
[2019-01-20] MEDS ORDERED: methylPREDNISolone sod succ 125mg/2ml vial IV ONE (13:35)
[2019-01-20 14:16] LABS: ABG BASE EXCESS 0.8 mmol/L (-2.0-3.0); ABG HCO3 25.6 mmol/L (22.0-26.0); ABG OXYGEN SATURATION 97.3 % (95-98); ABG PCO2 (T) 41.5 mmHg (35.0-45.0); ABG PH (T) 7.408 (7.350-7.450); ABG PO2 (T) 92.4 mmHg (83-108); ALLEN'S TEST Positive; FCOHb 0.5 % (0.5-1.5); FLOW 4 L/min; FMetHb 0.1 % (0.3-1.12); FO2Hb 96.7 % (94-100); TOTAL HEMOGLOBIN 12.4 G/dl (12.0-16.0)
[2019-01-20] MEDS ORDERED: ipratropium/albuterol 3ml nebule NEB ONE (15:35)
[2019-01-20] MEDS ORDERED: LORazepam 2 mg/ml vial IV ONE (16:10)
[2019-01-20] MEDS ORDERED: LOSA100T57 PO (16:25)
[2019-01-20] MEDS ORDERED: FLUT1AER PO (16:31)
[2019-01-20] MEDS ORDERED: diphenhydrAMINE 50 mg/ml inj IV PRN (17:35)
[2019-01-20] MEDS ORDERED: diphenhydrAMINE 25mg capsule PO PRN (17:35)
[2019-01-20] MEDS ORDERED: acetaminophen 325mg tablet PO PRN ×2 (17:35)
[2019-01-20] MEDS ORDERED: magnesium 4gm in 100ml NS 100 ML IV PRN (17:35)
[2019-01-20] MEDS ORDERED: bisacodyl 10mg suppository rectal RC PRN (17:35)
[2019-01-20] MEDS ORDERED: acetaminophen 650mg rectal suppository RC PRN (17:35)
[2019-01-20] MEDS: K and/or MAG REPLACEMENT MC SCH (17:35)
[2019-01-20] MEDS ORDERED: magnesium hydroxide 30ml (MOM) UD suspension PO PRN (17:35)
[2019-01-20] MEDS ORDERED: metoclopramide 5 mg/ml inj IV PRN (17:35)
[2019-01-20] MEDS ORDERED: mag hydrox/Alum hydrox/simeth 30ml oral suspension PO PRN (17:35)
[2019-01-20] MEDS ORDERED: magnesium Cl slow-release 64mg tablet PO PRN (17:35)
[2019-01-20] MEDS ORDERED: potassium CL 10mEq/100ml bag 100 ML IV PRN ×2 (17:35)
[2019-01-20] MEDS ORDERED: ondansetron/PF 4mg/2ml inj IV PRN (17:35)
[2019-01-20] MEDS ORDERED: potassium Cl 20 mEq SR tablet PO PRN ×2 (17:35)
[2019-01-20] MEDS ORDERED: magnesium 2GM in 50ml NS 50 ML IV PRN (17:35)
[2019-01-20] MEDS: ringers solution, lacted 1,000 ML IV SCH (18:10)
[2019-01-20] MEDS ORDERED: vancomycin/NS 1 GM ADD-VANTAGE 250 ML IV ONE (18:23)
[2019-01-20 18:47] LABS: MAGNESIUM 1.9 MG/DL (1.5-2.4); PHOSPHORUS 3.6 MG/DL (2.3-4.5)
[2019-01-20] MEDS ORDERED: iohexol 300mg/ml 100ml inj. ONE (18:59)
[2019-01-20] MEDS: HYDROcodone/acetaminophen 10/325mg tab PO PRN (19:45)
[2019-01-20] MEDS: methylPREDNISolone sod succ 125mg/2ml vial IV SCH (19:46)
[2019-01-20] MEDS: ipratropium/albuterol 3ml nebule NEB SCH ×2 (19:48→23:00)
[2019-01-20 20:00] VITALS: BP 149/90
--- NOTE | 2019-01-20 20:00 | NUR ---
Received report from Ashley in ED. Given time to ask questions and have them answered. Will assume care once patient is on floor.
[2019-01-20] MEDS ORDERED: temazepam 15mg capsule PO PRN (21:00)
[2019-01-20] MEDS: atorvastatin 20mg tablet PO SCH (21:40)
[2019-01-20] MEDS: risperiDONE 0.5mg tablet PO SCH (21:41)
[2019-01-20] MEDS: quetiapine 100mg tablet PO SCH (21:41)
[2019-01-21] VITALS: BP 113/62
[2019-01-21] MEDS: methylPREDNISolone sod succ 125mg/2ml vial IV SCH ×4 (02:24→19:43)
[2019-01-21 05:07] LABS: BASOPHILS % (AUTO) 0.2 % (0-1); EOSINOPHILS % (AUTO) 0.1 % (0-6); HEMATOCRIT 29.7 % (35.0-45.0); HEMOGLOBIN 10.3 g/dl (12.0-16.0); LYMPHOCYTES # (AUTO) 0.5 X10'3 (1.1-4.8); LYMPHOCYTES % (AUTO) 10.3 % (21-51); MEAN CORPUSCULAR HEMOGLOBIN 33.6 PG (27.0-31.0); MEAN CORPUSCULAR HGB CONC 34.8 g/dL (33.0-36.5); MEAN CORPUSCULAR VOLUME 96.7 FL (78-98); MONOCYTES # (AUTO) 0.1 X10'3 (0-0.9); MONOCYTES % (AUTO) 1.9 % (2-12); NEUTROPHILS # (AUTO) 4.3 X10'3 (1.8-7.7); NEUTROPHILS % (AUTO) 87.5 % (42-75); PLATELET COUNT 219 X10'3 (140-440); RED BLOOD COUNT 3.07 X10'6 (4.20-5.60); RED CELL DISTRIBUTION WIDTH 13.9 % (11.5-14.5); WHITE BLOOD COUNT 4.9 X10'3 (4.5-11.0)
[2019-01-21 05:20] LABS: ALANINE AMINOTRANSFERASE 14 U/L (12-78); ALBUMIN 2.9 G/DL (3.4-5.0); ALKALINE PHOSPHATASE 64 IU/L (46-116); ANION GAP 8 (8-16); ASPARTATE AMINO TRANSFERASE 11 U/L (10-37); BILIRUBIN,TOTAL 0.2 MG/DL (0.1-1.0); BLOOD UREA NITROGEN 12 MG/DL (7-18); CALCIUM 8.2 MG/DL (8.5-10.1); CHLORIDE 105 MMOL/L (99-107); CHOLESTEROL 139 MG/DL (0-200); GLUCOSE 155 MG/DL (70-104); HDL CHOLESTEROL 68 MG/DL (35-60); LDL CHOLESTEROL 59 MG/DL (50-100); MAGNESIUM 1.7 MG/DL (1.5-2.4); PHOSPHORUS 2.7 MG/DL (2.3-4.5); SODIUM 141 MMOL/L (135-145); TOTAL CARBON DIOXIDE 28.4 MMOL/L (24-32); TOTAL PROTEIN 5.8 G/DL (6.4-8.2); TRIGLYCERIDES 61 MG/DL (20-135); eGFR 70 ML/MIN
--- NOTE | 2019-01-21 06:40 | NUR ---
Patient in room [facility]. I have received report from Sherlyn BE and had the opportunity to ask questions and assume patient care.
[2019-01-21 07:00] VITALS: BP 163/77
[2019-01-21] MEDS: ipratropium/albuterol 3ml nebule NEB SCH ×5 (07:00→23:21)
[2019-01-21] MEDS: enoxaparin 40mg/0.4ml syringe SUBCUT SCH (08:00)
[2019-01-21] MEDS: K and/or MAG REPLACEMENT MC SCH (08:00)
[2019-01-21] MEDS: levoTHYROXINE 25mcg tablet PO SCH ×2 (08:53→12:01)
[2019-01-21 09:30] VITALS: BP 154/75
[2019-01-21] MEDS: VANCOMYCIN 750MG IV in NS 250 ML IV SCH ×2 (09:34→19:43)
[2019-01-21] MEDS: ringers solution, lacted 1,000 ML IV SCH ×2 (09:34→22:11)
[2019-01-21] MEDS: enoxaparin 40mg/0.4ml syringe SQ SCH (09:44)
--- NOTE | 2019-01-21 09:44 | NUR ---
PAGER ID: [phone] MESSAGE: Mamta Surg 1871 Re; Vincentabi, Kale 348B having chest pain please call EKG done Addendum: 01/21/19 at 0949 by Nohelia Nagel RN Dr Gabriel on the floor read EKG no need to keep paging Dr Nixon will show when he comes to the floor. Patients chest pain is on later left side of chest
[2019-01-21] MEDS: losartan 50mg tablet PO SCH (09:46)
[2019-01-21] MEDS: metoprolol succinate 25mg (24-HOUR) SR. Tablet PO SCH (09:46)
[2019-01-21] MEDS: HYDROcodone/acetaminophen 5mg/325mg tablet PO PRN ×2 (09:53→20:16)
[2019-01-21] MEDS ORDERED: pneumococcal 23-VAL P-sac vacc 25 mcg/0.5ml vial IMVAC ONE (10:00)
[2019-01-21 11:00] VITALS: BP 160/61
--- NOTE | 2019-01-21 11:54 | NUR ---
Patient claimed that she already got Prevanar 13 last year (brand name for Pneumococcal vaccine) but not the Prevanar 14. I discussed this with the pharmacists and expressed concern that it might be too soon to get another Pneumococcal vaccine since it has not been 5 years yet. Pharmacist advised to ask the doctor if he wants another dose of Pneumococcal vaccine this year.
[2019-01-21] MEDS: CefTRIAXone/D5W-Rocephin 1gm 50 ML IV SCH (14:32)
[2019-01-21] MEDS: LORazepam 0.5 MG tablet PO PRN ×2 (16:11→20:51)
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
[2019-01-21 18:30] VITALS: BP 168/67
--- NOTE | 2019-01-21 19:00 | NUR ---
Patient in room [facility]. I have received report from Yane BE and had the opportunity to ask questions and assume patient care.Yane
--- NOTE | 2019-01-21 19:01 | NUR ---
Problems reprioritized. Patient report given, questions answered & plan of care reviewed with Nahomy BE.
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
[2019-01-21] MEDS: quetiapine 100mg tablet PO SCH (20:16)
[2019-01-21] MEDS: risperiDONE 0.5mg tablet PO SCH (20:16)
[2019-01-21] MEDS: atorvastatin 20mg tablet PO SCH (20:16)
[2019-01-22] VITALS: BP 154/84
[2019-01-22] MEDS: ringers solution, lacted 1,000 ML IV SCH (01:58)
[2019-01-22] MEDS: methylPREDNISolone sod succ 125mg/2ml vial IV SCH ×4 (02:00→21:20)
[2019-01-22 05:10] LABS: ALANINE AMINOTRANSFERASE 14 U/L (12-78); ALBUMIN 2.9 G/DL (3.4-5.0); ALKALINE PHOSPHATASE 60 IU/L (46-116); ANION GAP 7 (8-16); ASPARTATE AMINO TRANSFERASE 19 U/L (10-37); BILIRUBIN,TOTAL 0.2 MG/DL (0.1-1.0); CALCIUM 8.1 MG/DL (8.5-10.1); CHLORIDE 105 MMOL/L (99-107); CREATININE 0.69 MG/DL (0.40-0.90); GLUCOSE 147 MG/DL (70-104); MAGNESIUM 1.9 MG/DL (1.5-2.4); POTASSIUM 3.8 MMOL/L (3.5-5.1); SODIUM 142 MMOL/L (135-145); TOTAL CARBON DIOXIDE 30.3 MMOL/L (24-32); TOTAL PROTEIN 5.8 G/DL (6.4-8.2); eGFR 83 ML/MIN
[2019-01-22 05:18] LABS: BLOOD UREA NITROGEN 15 MG/DL (7-18); BUN/CREATININE RATIO 21.7 (6.6-38.0)
[2019-01-22 05:22] LABS: BASOPHILS % (AUTO) 0.1 % (0-1); EOSINOPHILS % (AUTO) 0 % (0-6); HEMATOCRIT 29.5 % (35.0-45.0); HEMOGLOBIN 10.4 g/dl (12.0-16.0); LYMPHOCYTES # (AUTO) 0.5 X10'3 (1.1-4.8); LYMPHOCYTES % (AUTO) 6.4 % (21-51); MEAN CORPUSCULAR HEMOGLOBIN 33.5 PG (27.0-31.0); MEAN CORPUSCULAR HGB CONC 35.2 g/dL (33.0-36.5); MEAN CORPUSCULAR VOLUME 95.2 FL (78-98); MONOCYTES # (AUTO) 0.2 X10'3 (0-0.9); MONOCYTES % (AUTO) 2.4 % (2-12); NEUTROPHILS # (AUTO) 7.7 X10'3 (1.8-7.7); NEUTROPHILS % (AUTO) 91.1 % (42-75); PLATELET COUNT 236 X10'3 (140-440); RED CELL DISTRIBUTION WIDTH 13.8 % (11.5-14.5); WHITE BLOOD COUNT 8.5 X10'3 (4.5-11.0)
--- NOTE | 2019-01-22 06:25 | NUR ---
Problems reprioritized. Patient report given, questions answered & plan of care reviewed with Ynes BE.
--- NOTE | 2019-01-22 06:55 | NUR ---
Patient in room [facility]. I have received report from HAILE LOTT and had the opportunity to ask questions and assume patient care.
[2019-01-22 07:00] VITALS: BP 188/85
[2019-01-22] MEDS: ipratropium/albuterol 3ml nebule NEB SCH ×5 (07:05→23:00)
[2019-01-22] MEDS ORDERED: levoTHYROXINE 25mcg tablet PO ONE (07:30)
[2019-01-22] MEDS: K and/or MAG REPLACEMENT MC SCH (08:00)
[2019-01-22] MEDS: enoxaparin 40mg/0.4ml syringe SUBCUT SCH (08:00)
[2019-01-22] MEDS: VANCOMYCIN 750MG IV in NS 250 ML IV SCH ×2 (08:10→21:21)
[2019-01-22] MEDS: losartan 50mg tablet PO SCH (08:12)
[2019-01-22] MEDS: metoprolol succinate 25mg (24-HOUR) SR. Tablet PO SCH (08:13)
[2019-01-22] MEDS: enoxaparin 40mg/0.4ml syringe SQ SCH (08:14)
--- NOTE | 2019-01-22 08:40 | NUR ---
Pt c/o feeling feverish. Temp was 97.9, top blanket removed per pt request. Pt also c/o feet hurting after IV ABX infused yesterday. Pharmacist called to see if it could be a potential side effect of antibiotics. Pharmacist recommended to narrow down time frame with patient to figure out which ABX caused pain and discuss with hospitalist. Primary RN and electrical discharge machine operator notified. Will continue to monitor.
[2019-01-22] MEDS: HYDROcodone/acetaminophen 5mg/325mg tablet PO PRN ×2 (10:12→21:19)
[2019-01-22 11:00] VITALS: BP 189/75
[2019-01-22] MEDS ORDERED: EST1T PO (13:48)
[2019-01-22] MEDS ORDERED: ESTR0.5T4 PO (13:58)
[2019-01-22] MEDS: CefTRIAXone/D5W-Rocephin 1gm 50 ML IV SCH (15:30)
[2019-01-22] MEDS: levoTHYROXINE 25mcg tablet PO SCH (15:30)
--- NOTE | 2019-01-22 16:07 | NUR ---
WHEN NURSE WAS GETTING MRI SCREENING PAPERWORK FOR PATIENT, PATIENT REFUSED MRI STATING THAT " SAYS THAT MY BRAIN IS FINE AND I DON'T NEED THE TEST" , AND "I DON'T WANT ANYMORE TESTS." PAGED DR. CHILDRESS, AWAITING CALL BACK, NOTIFIED CHARGE NURSE.
--- NOTE | 2019-01-22 18:00 | NUR ---
Patient in room [facility]. I have received report from dayshift Rn and had the opportunity to ask questions and assume patient care.
--- NOTE | 2019-01-22 18:20 | NUR ---
Problems reprioritized. Patient report given, questions answered & plan of care reviewed with HAILE LAGUNA.
[2019-01-22] MEDS ORDERED: VANCOMYCIN LEVEL IV ONE (18:30)
[2019-01-22 20:00] VITALS: BP 160/81
--- NOTE | 2019-01-22 20:30 | NUR ---
pt took hs medications, and eye mask for sleep. pt confused on events and place and talking about hearing things and internet in her head. reorientated pt to place events and that we have a regular call light system and not an internet for her to call us.
[2019-01-22] MEDS: LORazepam 0.5 MG tablet PO PRN (21:18)
[2019-01-22] MEDS: quetiapine 100mg tablet PO SCH (21:19)
[2019-01-22] MEDS: atorvastatin 20mg tablet PO SCH (21:19)
[2019-01-22] MEDS: risperiDONE 0.5mg tablet PO SCH (21:20)
--- NOTE | 2019-01-22 22:30 | NUR ---
pt resting eyes closed no s&s of distress.
--- NOTE | 2019-01-22 23:27 | NUR ---
pt awoke used BRP wanting more sleeping med. pt has ativan and norco encouraged to close eyes again.
[2019-01-23] VITALS: BP 170/83
--- NOTE | 2019-01-23 01:08 | NUR ---
resting eyes closed without s&s of distress at this time.
[2019-01-23] MEDS: methylPREDNISolone sod succ 125mg/2ml vial IV SCH ×2 (02:05→07:20)
[2019-01-23] MEDS: ringers solution, lacted 1,000 ML IV SCH (02:05)
--- NOTE | 2019-01-23 02:37 | NUR ---
resting eyes closed without changes.
--- NOTE | 2019-01-23 04:21 | NUR ---
resting eye mask on no s&s of distress.
[2019-01-23 05:14] LABS: BASOPHILS % (AUTO) 0.1 % (0-1); EOSINOPHILS % (AUTO) 0.1 % (0-6); HEMATOCRIT 28.2 % (35.0-45.0); HEMOGLOBIN 9.8 g/dl (12.0-16.0); LYMPHOCYTES # (AUTO) 0.5 X10'3 (1.1-4.8); LYMPHOCYTES % (AUTO) 7.8 % (21-51); MEAN CORPUSCULAR HEMOGLOBIN 33.4 PG (27.0-31.0); MEAN CORPUSCULAR HGB CONC 34.8 g/dL (33.0-36.5); MEAN CORPUSCULAR VOLUME 95.9 FL (78-98); MEAN PLATELET VOLUME 6.9 FL (7.4-10.4); MONOCYTES # (AUTO) 0.2 X10'3 (0-0.9); MONOCYTES % (AUTO) 2.5 % (2-12); NEUTROPHILS % (AUTO) 89.5 % (42-75); PLATELET COUNT 234 X10'3 (140-440); RED BLOOD COUNT 2.94 X10'6 (4.20-5.60); RED CELL DISTRIBUTION WIDTH 14.1 % (11.5-14.5); WHITE BLOOD COUNT 6.7 X10'3 (4.5-11.0)
[2019-01-23 05:33] LABS: ALANINE AMINOTRANSFERASE 19 U/L (12-78); ALBUMIN 2.9 G/DL (3.4-5.0); ALBUMIN/GLOBULIN RATIO 1.1 (1.1-1.5); ALKALINE PHOSPHATASE 54 IU/L (46-116); ANION GAP 6 (8-16); ASPARTATE AMINO TRANSFERASE 15 U/L (10-37); BILIRUBIN,TOTAL 0.2 MG/DL (0.1-1.0); BLOOD UREA NITROGEN 16 MG/DL (7-18); BUN/CREATININE RATIO 22.9 (6.6-38.0); CALCIUM 8.4 MG/DL (8.5-10.1); CHLORIDE 106 MMOL/L (99-107); GLUCOSE 138 MG/DL (70-104); MAGNESIUM 2.1 MG/DL (1.5-2.4); PHOSPHORUS 3.4 MG/DL (2.3-4.5); SODIUM 143 MMOL/L (135-145); TOTAL CARBON DIOXIDE 30.9 MMOL/L (24-32); TOTAL PROTEIN 5.6 G/DL (6.4-8.2); eGFR 82 ML/MIN
--- NOTE | 2019-01-23 06:20 | NUR ---
Patient in room [facility]. I have received report from HAILE LAGUNA and had the opportunity to ask questions and assume patient care.
--- NOTE | 2019-01-23 06:28 | NUR ---
Problems reprioritized. Patient report given, questions answered & plan of care reviewed with Ynes Dozier Rn. Addendum: 01/23/19 at 0628 by Marge Hernandez RN Amended: Links added.
[2019-01-23] MEDS: ipratropium/albuterol 3ml nebule NEB SCH ×5 (06:42→23:20)
[2019-01-23] MEDS: LORazepam 0.5 MG tablet PO PRN ×3 (06:50→21:12)
[2019-01-23] MEDS: levoTHYROXINE 25mcg tablet PO SCH (06:57)
[2019-01-23] MEDS: HYDROcodone/acetaminophen 5mg/325mg tablet PO PRN ×3 (06:57→21:12)
[2019-01-23] MEDS: VANCOMYCIN 750MG IV in NS 250 ML IV SCH (06:57)
[2019-01-23 07:00] VITALS: BP_SYST 168; BP_SYST 192; BP_DIAS 92; BP_DIAS 99
[2019-01-23] MEDS: metoprolol succinate 25mg (24-HOUR) SR. Tablet PO SCH (07:21)
[2019-01-23] MEDS: losartan 50mg tablet PO SCH (07:21)
[2019-01-23] MEDS: enoxaparin 40mg/0.4ml syringe SUBCUT SCH (07:22)
[2019-01-23] MEDS: K and/or MAG REPLACEMENT MC SCH (08:00)
[2019-01-23 11:00] VITALS: BP_SYST 175; BP_SYST 186; BP_DIAS 80; BP_DIAS 88
[2019-01-23] MEDS: methylPREDNISolone sod succ/PF 40mg inj. IV SCH ×2 (11:00→21:10)
[2019-01-23] MEDS: hydrALAZINE 20mg/ml inj. IV PRN (13:09)
[2019-01-23] MEDS: CefTRIAXone/D5W-Rocephin 1gm 50 ML IV SCH (14:05)
[2019-01-23 18:15] VITALS: BP 145/79
--- NOTE | 2019-01-23 18:50 | NUR ---
Patient in room [facility]. I have received report from Ynes Dozier RN and had the opportunity to ask questions and assume patient care.
--- NOTE | 2019-01-23 19:14 | NUR ---
Problems reprioritized. Patient report given, questions answered & plan of care reviewed with HAILE Silva.
[2019-01-23] MEDS: vancomycin/NS 1 GM ADD-VANTAGE 250 ML IV SCH (20:53)
[2019-01-23] MEDS: quetiapine 100mg tablet PO SCH (21:11)
[2019-01-23] MEDS: lactobacillus rhamnosus 10,000 MMU CELLS/CAPSULE PO SCH (21:11)
[2019-01-23] MEDS: atorvastatin 20mg tablet PO SCH (21:12)
[2019-01-23] MEDS: risperiDONE 0.5mg tablet PO SCH (21:12)
[2019-01-24 00:44] VITALS: BP 137/64
[2019-01-24] MEDS: LORazepam 0.5 MG tablet PO PRN ×4 (03:06→18:41)
[2019-01-24] MEDS: ipratropium/albuterol 3ml nebule NEB PRN (03:22)
--- NOTE | 2019-01-24 03:30 | NUR ---
Entered room to assess pt. Pt states that she had just walked back from using restroom and now states "I cannot breathe" while searching for NC, pulse ox in the mid 80's. 2L NC placed on pt, pulse ox mid 90's. Pt requested Ativan and breathing treatments, Ativan administered and paged RT. Wheezes audible in room and during auscultation. Patient also with continuous coughing, moist and non-productive. Encouraged pt to DB&C. Pt was able to expel small amt of clear, white sputum for culture. RT arrived on unit and breathing treatment was performed.
[2019-01-24 06:02] LABS: ALANINE AMINOTRANSFERASE 16 U/L (12-78); ALBUMIN 2.8 G/DL (3.4-5.0); ALKALINE PHOSPHATASE 51 IU/L (46-116); ANION GAP 5 (8-16); ASPARTATE AMINO TRANSFERASE 21 U/L (10-37); BILIRUBIN,TOTAL 0.2 MG/DL (0.1-1.0); BLOOD UREA NITROGEN 19 MG/DL (7-18); BUN/CREATININE RATIO 25.7 (6.6-38.0); CALCIUM 8.2 MG/DL (8.5-10.1); CHLORIDE 106 MMOL/L (99-107); CREATININE 0.74 MG/DL (0.40-0.90); GLUCOSE 126 MG/DL (70-104); MAGNESIUM 2.4 MG/DL (1.5-2.4); PHOSPHORUS 3.3 MG/DL (2.3-4.5); POTASSIUM 4.1 MMOL/L (3.5-5.1); SODIUM 143 MMOL/L (135-145); TOTAL CARBON DIOXIDE 32.1 MMOL/L (24-32); TOTAL PROTEIN 5.5 G/DL (6.4-8.2); eGFR 77 ML/MIN
[2019-01-24 06:19] LABS: BASOPHILS % (AUTO) 0.3 % (0-1); EOSINOPHILS % (AUTO) 0.5 % (0-6); HEMATOCRIT 29.4 % (35.0-45.0); LYMPHOCYTES # (AUTO) 0.5 X10'3 (1.1-4.8); LYMPHOCYTES % (AUTO) 12.7 % (21-51); MEAN CORPUSCULAR HEMOGLOBIN 33.4 PG (27.0-31.0); MEAN CORPUSCULAR HGB CONC 34.2 g/dL (33.0-36.5); MEAN CORPUSCULAR VOLUME 97.6 FL (78-98); MEAN PLATELET VOLUME 8.2 FL (7.4-10.4); MONOCYTES # (AUTO) 0.2 X10'3 (0-0.9); MONOCYTES % (AUTO) 3.7 % (2-12); NEUTROPHILS # (AUTO) 3.5 X10'3 (1.8-7.7); NEUTROPHILS % (AUTO) 82.8 % (42-75); PLATELET COUNT 170 X10'3 (140-440); RED BLOOD COUNT 3.01 X10'6 (4.20-5.60); RED CELL DISTRIBUTION WIDTH 13.9 % (11.5-14.5); WHITE BLOOD COUNT 4.3 X10'3 (4.5-11.0)
[2019-01-24] MEDS ORDERED: VANCOMYCIN LEVEL IV ONE (06:30)
--- NOTE | 2019-01-24 06:47 | NUR ---
Problems reprioritized. Patient report given, questions answered & plan of care reviewed with HAILE Banks.
--- NOTE | 2019-01-24 06:54 | NUR ---
Patient in room [facility]. I have received report from Shira BE and had the opportunity to ask questions and assume patient care.
[2019-01-24] MEDS: ipratropium/albuterol 3ml nebule NEB SCH ×5 (07:00→23:00)
[2019-01-24] MEDS: vancomycin/NS 1 GM ADD-VANTAGE 250 ML IV SCH ×2 (07:52→21:34)
[2019-01-24] MEDS: enoxaparin 40mg/0.4ml syringe SUBCUT SCH (07:57)
[2019-01-24] MEDS: levoTHYROXINE 25mcg tablet PO SCH (07:58)
[2019-01-24] MEDS: metoprolol succinate 25mg (24-HOUR) SR. Tablet PO SCH (07:58)
[2019-01-24] MEDS: lactobacillus rhamnosus 10,000 MMU CELLS/CAPSULE PO SCH ×2 (07:59→20:29)
[2019-01-24] MEDS: losartan 50mg tablet PO SCH (07:59)
[2019-01-24] MEDS: K and/or MAG REPLACEMENT MC SCH (08:00)
[2019-01-24] MEDS: methylPREDNISolone sod succ/PF 40mg inj. IV SCH ×2 (08:00→20:30)
[2019-01-24] MEDS: HYDROcodone/acetaminophen 10/325mg tab PO PRN ×3 (08:18→18:46)
[2019-01-24 08:22] VITALS: BP 170/89
[2019-01-24 11:00] VITALS: BP 171/81
[2019-01-24 12:31] VITALS: BP 119/73
[2019-01-24] MEDS: CefTRIAXone/D5W-Rocephin 1gm 50 ML IV SCH (13:55)
[2019-01-24 18:00] VITALS: BP 178/84
--- NOTE | 2019-01-24 18:00 | NUR ---
Patient in room [facility]. I have received report from Jocelyn BE and had the opportunity to ask questions and assume patient care. Addendum: 01/24/19 at 1937 by Marifer Ruiz RN Amended: Links added.
--- NOTE | 2019-01-24 18:41 | NUR ---
Problems reprioritized. Patient report given, questions answered & plan of care reviewed with Marifer BE.
[2019-01-24] MEDS: atorvastatin 20mg tablet PO SCH (20:30)
[2019-01-24] MEDS: quetiapine 100mg tablet PO SCH (20:30)
[2019-01-24] MEDS: risperiDONE 0.5mg tablet PO SCH (20:30)
[2019-01-24] MEDS: hydrALAZINE 20mg/ml inj. IV PRN (21:09)
[2019-01-25] VITALS: BP 169/64
[2019-01-25] MEDS: ipratropium/albuterol 3ml nebule NEB PRN (02:13)
[2019-01-25] MEDS: LORazepam 0.5 MG tablet PO PRN ×3 (02:18→11:57)
[2019-01-25] MEDS: HYDROcodone/acetaminophen 10/325mg tab PO PRN ×2 (02:22→07:21)
--- NOTE | 2019-01-25 02:27 | NUR ---
Pt. c/o anxiety, SOB , and pain. Pain medication and anti-anxiety administered. Sats at 93% on 2 l via n/c, RR 22, and HR 97. RT at bed side administering breathing tx to pt. Will continue monitoring Addendum: 01/25/19 at 0233 by Marifer Ruiz RN Amended: Links added.
--- NOTE | 2019-01-25 06:00 | NUR ---
Problems reprioritized. Patient report given, questions answered & plan of care reviewed with Rolo. Addendum: 01/25/19 at 0629 by Marifer Ruiz RN Amended: Links added.
[2019-01-25] MEDS ORDERED: VANCOMYCIN LEVEL IV ONE (06:30)
--- NOTE | 2019-01-25 06:47 | NUR ---
Patient in room [facility]. I have received report from Marifer BE and had the opportunity to ask questions and assume patient care.
[2019-01-25] MEDS: ipratropium/albuterol 3ml nebule NEB SCH ×2 (07:12→10:57)
[2019-01-25] MEDS: levoTHYROXINE 25mcg tablet PO SCH (07:20)
[2019-01-25] MEDS: losartan 50mg tablet PO SCH (07:20)
[2019-01-25] MEDS: lactobacillus rhamnosus 10,000 MMU CELLS/CAPSULE PO SCH (07:20)
[2019-01-25] MEDS: metoprolol succinate 25mg (24-HOUR) SR. Tablet PO SCH (07:22)
[2019-01-25] MEDS: methylPREDNISolone sod succ/PF 40mg inj. IV SCH (07:25)
[2019-01-25] MEDS: enoxaparin 40mg/0.4ml syringe SUBCUT SCH (07:35)
[2019-01-25] MEDS: K and/or MAG REPLACEMENT MC SCH (08:00)
[2019-01-25] MEDS: vancomycin/NS 1 GM ADD-VANTAGE 250 ML IV SCH (08:23)
[2019-01-25 08:27] LABS: BASOPHILS % (AUTO) 0.1 % (0-1); EOSINOPHILS % (AUTO) 0.1 % (0-6); HEMATOCRIT 31.3 % (35.0-45.0); HEMOGLOBIN 10.7 g/dl (12.0-16.0); LYMPHOCYTES # (AUTO) 0.8 X10'3 (1.1-4.8); LYMPHOCYTES % (AUTO) 18.4 % (21-51); MEAN CORPUSCULAR HEMOGLOBIN 33.1 PG (27.0-31.0); MEAN CORPUSCULAR VOLUME 97.3 FL (78-98); MEAN PLATELET VOLUME 7.1 FL (7.4-10.4); MONOCYTES # (AUTO) 0.3 X10'3 (0-0.9); MONOCYTES % (AUTO) 7.4 % (2-12); NEUTROPHILS # (AUTO) 3.3 X10'3 (1.8-7.7); PLATELET COUNT 234 X10'3 (140-440); RED BLOOD COUNT 3.22 X10'6 (4.20-5.60); RED CELL DISTRIBUTION WIDTH 14.2 % (11.5-14.5); WHITE BLOOD COUNT 4.4 X10'3 (4.5-11.0)
[2019-01-25 08:30] VITALS: BP 162/82
[2019-01-25 08:38] LABS: ALANINE AMINOTRANSFERASE 20 U/L (12-78); ALBUMIN 2.8 G/DL (3.4-5.0); ALKALINE PHOSPHATASE 55 IU/L (46-116); ANION GAP 4 (8-16); ASPARTATE AMINO TRANSFERASE 11 U/L (10-37); BILIRUBIN,TOTAL 0.2 MG/DL (0.1-1.0); BLOOD UREA NITROGEN 16 MG/DL (7-18); CALCIUM 7.8 MG/DL (8.5-10.1); CHLORIDE 105 MMOL/L (99-107); CREATININE 0.64 MG/DL (0.40-0.90); GLUCOSE 114 MG/DL (70-104); POTASSIUM 4.2 MMOL/L (3.5-5.1); SODIUM 142 MMOL/L (135-145); TOTAL CARBON DIOXIDE 33.2 MMOL/L (24-32); TOTAL PROTEIN 5.6 G/DL (6.4-8.2); eGFR > 90 ML/MIN
[2019-01-25 08:39] LABS: MAGNESIUM 2.2 MG/DL (1.5-2.4); PHOSPHORUS 3.3 MG/DL (2.3-4.5); VANCOMYCIN,TROUGH 14.3 UG/ML (6.0-14.0)
[2019-01-25] MEDS ORDERED: PRED10TA23 PO (11:32)
[2019-01-25] MEDS ORDERED: LEVO500T2 PO (11:32)
--- NOTE | 2019-01-25 13:57 | NUR ---
Patient D/C'd home per Dr. Edward. Patient in stable condition. discharge and medication instructions given. IV removed. patient left the hospital accompanied by son via private vehicle.
== END 2019-01-25 13:50 | disposition home health service (06) | DRG 193 ==
LOC: ER 11:41 → ED HOLD 17:33 → SUR 3N 20:10
PROVIDERS: ADMIT Family Medicine; ATTEND Family Medicine
DX: J18.9 Pneumonia, unspecified organism (principal); G93.41 Metabolic encephalopathy; J96.21 Acute and chronic respiratory failure with hypoxia; J44.1 Chronic obstructive pulmonary disease with (acute) exacerbation; J44.0 Chronic obstructive pulmonary disease with (acute) lower respiratory infection; I71.2 Thoracic aortic aneurysm, without rupture; Z96.612 Presence of left artificial shoulder joint; Z96.643 Presence of artificial hip joint, bilateral; F32.9 Major depressive disorder, single episode, unspecified; K21.9 Gastro-esophageal reflux disease without esophagitis; Z60.2 Problems related to living alone; R59.0 Localized enlarged lymph nodes; E03.9 Hypothyroidism, unspecified; F41.1 Generalized anxiety disorder; I10 Essential (primary) hypertension; I25.10 Atherosclerotic heart disease of native coronary artery without angina pectoris; I25.2 Old myocardial infarction; Z80.1 Family history of malignant neoplasm of trachea, bronchus and lung; Z87.891 Personal history of nicotine dependence; Z90.710 Acquired absence of both cervix and uterus; Z95.5 Presence of coronary angioplasty implant and graft; Z68.21 Body mass index [BMI] 21.0-21.9, adult; Z88.0 Allergy status to penicillin; Z88.6 Allergy status to analgesic agent
CPT/HCPCS: 36415; 36600; 70470; 71045; 71250; 71260; 80053; 80061; 80202; 82803; 83605; 83735; 83880; 84100; 84145; 84443; 84484; 85018; 85025; 85610; 85730; 87040; 87070; 87081; 93005; 93306; 94640; 94667; 94668; 94760; 96365; 96375; 97116; 97161; 97530; 99291; G0378; J0360; J0456; J0696; J1650; J2060; J2270; J2920; J2930; J3370; J7050; J7120; Q9967

== ENCOUNTER 2019-04-24 04:42 | Emergency (ER) | payer MEDICARE ==
[~2019-04-24] VITALS: Ht 160 cm; Wt 56.0 kg
[~2019-04-24 04:42] MED LIST changes: -AZIT-63 PO; -BUDE10.2 INH; +ESTR0.5T4 PO; -FLUO10CA51 PO; +FLUT1AER PO; -HYDR-3686 PO; +LOSA100T57 PO; -LOSA25TA96 PO
[2019-04-24] MEDS ORDERED: LORazepam 1 MG tablet PO ONE (04:55)
--- NOTE | 2019-04-24 05:05 | NUR ---
PATIENT REFUSING ALL CARE MD AWARE
[2019-04-24 05:59] LABS: BASOPHILS # (AUTO) 0.1 X10'3 (0-0.2); EOSINOPHILS # (AUTO) 0.2 X10'3 (0-0.9); EOSINOPHILS % (AUTO) 3.7 % (0-6); HEMATOCRIT 35.8 % (35.0-45.0); HEMOGLOBIN 12.6 g/dl (12.0-16.0); LYMPHOCYTES # (AUTO) 1.2 X10'3 (1.1-4.8); LYMPHOCYTES % (AUTO) 19.1 % (21-51); MEAN CORPUSCULAR HEMOGLOBIN 33.9 PG (27.0-31.0); MEAN CORPUSCULAR VOLUME 96.7 FL (78-98); MEAN PLATELET VOLUME 6.8 FL (7.4-10.4); MONOCYTES # (AUTO) 0.6 X10'3 (0-0.9); MONOCYTES % (AUTO) 8.6 % (2-12); NEUTROPHILS # (AUTO) 4.4 X10'3 (1.8-7.7); NEUTROPHILS % (AUTO) 67.6 % (42-75); PLATELET COUNT 291 X10'3 (140-440); RED BLOOD COUNT 3.71 X10'6 (4.20-5.60); RED CELL DISTRIBUTION WIDTH 13.4 % (11.5-14.5); WHITE BLOOD COUNT 6.5 X10'3 (4.5-11.0)
[2019-04-24 06:11] LABS: PARTIAL THROMBOPLASTIN TIME 28 SECONDS (22-32)
[2019-04-24 06:12] LABS: ALANINE AMINOTRANSFERASE 21 U/L (12-78); ALBUMIN 3.8 G/DL (3.4-5.0); ALBUMIN/GLOBULIN RATIO 1.2 (1.1-1.5); ALKALINE PHOSPHATASE 71 IU/L (46-116); ANION GAP 7 (8-16); ASPARTATE AMINO TRANSFERASE 21 U/L (10-37); BILIRUBIN,TOTAL 0.4 MG/DL (0.1-1.0); BLOOD UREA NITROGEN 10 MG/DL (7-18); BUN/CREATININE RATIO 12.5 (6.6-38.0); CALCIUM 8.9 MG/DL (8.5-10.1); CHLORIDE 95 MMOL/L (99-107); GLUCOSE 105 MG/DL (70-104); POTASSIUM 3.6 MMOL/L (3.5-5.1); SODIUM 132 MMOL/L (135-145); TOTAL CARBON DIOXIDE 30.4 MMOL/L (24-32); TOTAL PROTEIN 6.9 G/DL (6.4-8.2); eGFR 70 ML/MIN
[2019-04-24 06:14] LABS: ETHANOL < 0.010 GM/DL (0.0-0.010); TROPONIN I < 0.04 NG/ML (0.0-0.05)
--- NOTE | 2019-04-24 06:30 | NUR ---
SBAR TO PERFECTO RN AND GABY RN NO QUESTIONS OR CONCERNS AFTER ASSUMING CARE
[2019-04-24 07:50] VITALS: BP 154/81
--- NOTE | 2019-04-24 08:05 | NUR ---
patient ambulated to the restroom with no assistance, upon arrival back to room the patient expressed her desire to leave and go home
--- NOTE | 2019-04-24 08:18 | NUR ---
patient's son, BJ Archibald called and he let us know that the patient has eloped from [facility] during a prior visit two months ago. Patient wants to leave at 0830 today to take imaginary grandchild to school.
--- NOTE | 2019-04-24 08:31 | NUR ---
Jayla from oncology social worker called and will reach out to the patient's son Dragan and offer him some resources
--- NOTE | 2019-04-24 09:24 | NUR ---
spoke with dr brenner about jennifer from speaking to son TOD and giving information for at home. spoke wtih Tod and stated will come to sheepskin pickler mother in 15 min. DC pending
== END 2019-04-24 10:01 | disposition home or self-care (01) ==
LOC: ER 04:42
DX: F03.90 Unspecified dementia, unspecified severity, without behavioral disturbance, psychotic disturbance, mood disturbance, and anxiety (principal); J44.9 Chronic obstructive pulmonary disease, unspecified; F32.9 Major depressive disorder, single episode, unspecified; Z88.0 Allergy status to penicillin; Z88.8 Allergy status to other drugs, medicaments and biological substances; Z79.899 Other long term (current) drug therapy
CPT/HCPCS: 36415; 80053; 80320; 84484; 85025; 85610; 85730; 93005; 99284; 99285